=== PATIENT | female | born 1935 | race Caucasian/White ===

== ENCOUNTER 2021-03-16 17:26 | Outpatient (REF) | payer MEDICARE, OTHER, SELFPAY ==
[2021-03-16 16:13] LABS: HCT 46.2 % (36.0-46.0); HGB 15.8 g/dL (11.2-15.7); MCH 30.8 pg (27.0-33.0); MCHC 34.2 % (32.0-36.0); MCV 90.1 fL (80-95); MPV 11.8 fL (8.0-11.0); Platelet Count 218 10^3/uL (130-400); RBC 5.13 10^6/uL (3.93-5.22); RDW 12.3 % (11.7-14.6); RDW-SD 40.3 fL; WBC 7.05 10^3/uL (4.4-10.8)
[2021-03-16 17:02] LABS: ALT 41 U/L (14-59); AST 21 U/L (15-37); Albumin 4.5 g/dL (3.4-5.0); Alkaline Phosphatase 83 U/L (46-116); Anion Gap 12.3 mmol/L (3-11); BUN 13 mg/dL (7-18); Bilirubin, Total 0.8 mg/dL (0.2-1.0); CO2 27.7 mmol/L (21.0-32.0); CREATININE 0.8 mg/dL (0.55-1.02); Calcium 9.4 mg/dL (8.5-10.1); Chloride 98 mmol/L (98-107); Potassium 3.5 mmol/L (3.5-5.1); Sodium 138 mmol/L (136-145); TSH (W/Ref FT4) 2.07 uIU/mL (0.36-3.74); Total Protein 8.3 g/dL (6.4-8.2); Vitamin B12 443 pg/mL (193-986)
[2021-03-16 17:06] LABS: Glucose 318 mg/dL (74-106)
== END 2021-03-16 17:27 | disposition home or self-care (01) ==
LOC: NCHCN 17:26
PROVIDERS: Visit Provider Family Medicine
DX: I10 Essential (primary) hypertension (principal); R01.1 Cardiac murmur, unspecified; R41.3 Other amnesia
CPT/HCPCS: 80053; 85027; 82607; 84443

== ENCOUNTER 2021-04-13 00:17 | Outpatient (CLI) | payer MEDICARE, OTHER, SELFPAY ==
--- NOTE | 2021-04-13 14:04 | DI.US_ITS ---
APPROVED REPORT EXAM: Comprehensive 2D, Doppler, and color-flow Echocardiogram Patient Location: Out-Patient Paperhanger And Painter: Sil Watson RDCS (AE) Indications: Heart murmur Other Information Study Quality: Adequate Conclusion Normal left ventricular wall thickness and chamber size. Estimated ejection fraction is 55 to 60%. Wall motion is normal Normal right ventricular size and systolic function Both atria are normal in size Aortic valve is calcified and probably trileaflet. There is no aortic stenosis. There is trace aort ic regurgitation Mild mitral annular calcification with trace mitral regurgitation Normal tricuspid valve with trace regurgitation Mildly dilated ascending aorta measuring 3.44 cm Wall motion Left Ventricle The left ventricle is normal size. The left ventricular systolic function is normal. The left ventric ular ejection fraction is within the normal range. There is normal left ventricular wall thickness. T here is normal LV segmental wall motion. There is no ventricular septal defect visualized. LVEF is 55 -60%. Right Ventricle The right ventricle is normal size. The right ventricular systolic function is normal. Atria The left atrium size is normal. The right atrium size is normal. The interatrial septum is intact wit h no evidence for an atrial septal defect. Aortic Valve Aortic valve is calcified. Aortic valve is probably trileaflet. There is no aortic valvular stenosis. Trace aortic regurgitation. Mitral Valve Mild mitral annular calcification. No evidence of mitral valve stenosis. Trace mitral regurgitation. Tricuspid Valve The tricuspid valve is normal in structure. There is no tricuspid valve stenosis. Trace tricuspid reg urgitation. Unable to assess PA pressure. Pulmonic Valve The pulmonary valve is normal in structure. There is no pulmonic valvular stenosis. There is no pulmo maik valvular regurgitation. Great Vessels The aortic root is normal in size. The ascending aorta is mildly dilated. Aortic arch is not well vis ualized. IVC is normal in size and collapses >50% with inspiration. Pericardium There is no pericardial effusion. 2D Dimensions IVSD d PLAX 0.88 cm F: 0.6-1.0 LV Vol A2C d MOD 70.8 mL LVPW d PLAX 0.90 cm F: 0.6 - 1.0 LV Vol A4C d MOD 80.7 mL LVID d PLAX 4.17 cm F: 3.8 - 5.2 LA vol/ BSA A2C s A-L 18.6 mL/m2 LVDs 3.00 cm F: 2.2 - 3.5 LA vol/ BSA A4C s A-L 16.1 mL/m2 Ao Root d 2.88 cm F: 2.7 - 3.3 LA Vol/ BSA Biplane s A-L 17.9 mL/m2 RA Area A4C 10.42 cm2 LA Area A4C s MOD 12.07 cm2 RA Vol/ BSA A4C s A-L 12.8 mL/m2 LA Area A2C s MOD 13.45 cm2 Ao Asc Diam d 3.44 cm F: 2.3 - 3.1 LV EF A4C MOD 54.5 % LV EF Teichholz 54.3 % LV EF A2C MOD 55.3 % LVEF (Tong's) 54.04 % F: 54 - 74 LV EF Biplane MOD 54.0 % LV Volume 60.71 mL F: 46 - 106 SV 41.23 mL LV Volume Index 35.92 mL/m2 F: 29 - 61 SV Index 24.38 mL/m2 LV Vol Biplane MOD 76.3 mL FS 27.75 % M-Mode TAPSE 1.90 cm (M/F) >1.7 LV Diastology MV E' medial 0.050 (>0.07 m/s) E/A Ratio 0.6 LV E/e MED 14.05 (<14) MV E Vmax 0.71 (0.4-1.3 m/s) MV E' lateral 0.083 (>0.1 m/s) MV A Vmax 1.20 (0.4-1.3 m/s) LV E/e LAT 8.45 (<14) MV E/A Ratio 0.58 MV E/E' medial 14.08 MV E/E' lateral 8.49 Aortic Valve LVOT Area 3.82 cm2 AoV Area Vmax 2.54 cm2 LVOT Vmax 1.24 m/s AoV Area/ BSA (Vmax) 1.50 cm2/m2 LVOT Mean Sean. 0.80 m/s SACHI Mean Sean. 2.02 cm2 LVOT Peak Grad 6.2 mmHg SACHI Mean Sean. Index 1.19 cm2/m2 LVOT Mean Grad 3.1 mmHg AR DT 1425 msec LVOT VTI 0.213 m AR PHT 413 msec LVOT Diam s 2.20 cm AoV Vmax 1.87 m/s Velocity Ratio 0.66 AoV Mean Sean. 1.52 m/s AoV Peak Grad 14.0 mmHg LVOT SV 81.18 mL AoV Mean Grad 9.6 mmHg AoV VTI 0.384 m AoV Area VTI 2.12 cm2 AoV Area/ BSA (VTI) 1.25 cm/m2 Mitral Valve MV DT 206 (160-240 msec) MV PHT 60 msec MV Area PHT 3.69 cm2 MV VTI 0.251 m MV Area VTI 3.24 (4.0-6.0 cm2) Pulmonary Valve PV Vmax 1.13 (0.5-1.5 m/s) RVOT Peak Gr. 3.54 mmHg PV Peak Grad 5.1 mmHg RVOT Mean Gr. 1.70 mmHg PV Mean Grad 2.7 mmHg RVOT VTI 0.162 m PV VTI 0.188 m RVOT Vmax 0.94 m/s
== END 2021-04-13 00:37 ==
PROVIDERS: Visit Provider Family Medicine
DX: R01.1 Cardiac murmur, unspecified (principal); I77.810 Thoracic aortic ectasia
CPT/HCPCS: 93306

== ENCOUNTER 2021-05-03 13:47 | Outpatient (REF) | payer MEDICARE, OTHER, SELFPAY ==
[2021-05-03 16:30] LABS: C Diff PCR Negative (Negative)
== END 2021-05-03 13:48 | disposition home or self-care (01) ==
LOC: NCHCN 13:47
PROVIDERS: Visit Provider Family Medicine
DX: E11.9 Type 2 diabetes mellitus without complications (principal); I10 Essential (primary) hypertension; K52.9 Noninfective gastroenteritis and colitis, unspecified
CPT/HCPCS: 87329; 87493; 83630; 87177

== ENCOUNTER 2021-11-27 12:25 | Inpatient (IN) | payer MEDICARE, OTHER, SELFPAY ==
[2021-11-27] VITALS (34 sets, daily range): BP systolic 125–209; BP diastolic 68–167; PULSE 79–138; RESP 0–37; O2SAT 91–98
--- NOTE | 2021-11-27 12:30 | RT.EKG_ITS ---
APPROVED REPORT Exam: Resting ECG Reason for Exam: STROKE Patient Location: E HR:119 bpm ECG Measurements Heart Rate 119 AXIS OK 172 P 70 QRSd 87 QRS 44 QT 315 T 239 QTc 444 Conclusion Sinus tachycardia...rate> 99 Probable left atrial enlargement...P >50mS, <-0.10mV V1 Probable LVH with secondary repol abnrm...multiple LVH criteria sinus tachycardia, normal axis, normal interals, lateral st depression, consider related to rate v LV H
--- NOTE | 2021-11-27 12:30 | DI.CT_ITS ---
Exam(s) CT HEAD WO EXAM: CT HEAD WO CLINICAL HISTORY: ams, vomiting. TECHNIQUE: Imaging Protocol: Axial computed tomography images with coronal and sagittal reformatted images were created and reviewed COMPARISON: CT HEAD AND NECK W CONTRAST from 05/23/2012 FINDINGS: Ventricles and Extra axial spaces: Normal in size and morphology for the patient's age. Hemorrhage: None. Cerebral parenchyma: No acute territorial infarct. There are areas of decreased attenuation in the w quan matter consistent with small vessel ischemic disease. Midline shift: None. Brainstem/Cerebellum: Normal. Calvarium: Normal. Visualized Paranasal sinuses/Mastoids: Clear. Soft Tissues: Unremarkable. IMPRESSION: No acute intracranial process. RADIATION DOSE DELIVERED: 1,364.41mGy.cm Total DLP DATA REPOSITORY: All CT scans at this facility are submitted to the National Radiology Data Registry (NRDR) Dose Index Registry (DIR) with the [employer] (ACR). RADIATION OPTIMIZATION: All CT scans at this facility use at least one of these dose optimization te chniques: automated exposure control; mA and/or kV adjustment per patient size (includes targeted exa ms where dose is matched to clinical indication); or iterative reconstruction.
--- NOTE | 2021-11-27 12:30 | DI.RAD_ITS ---
Exam(s) XR CHEST 1V IN DI DEPT EXAM: XR CHEST 1V IN DI DEPT CLINICAL HISTORY: ams, vomiting TECHNIQUE: 2D digital imaging was performed of the chest. One image was obtained. An AP view was ob tained. COMPARISON: CR LEFT RIBS TO INCLUDE CXR from 12/07/2016 FINDINGS: There are low lung volumes. MEDIASTINUM: Normal. HEART: Normal. PULMONARY VASCULATURE: Normal. LUNGS: Clear. PLEURAL SPACE: No pleural effusion or pneumothorax. BONE:Within normal limits for the patient's age. OTHER FINDINGS:Normal. IMPRESSION: No acute pulmonary findings. DATA REPOSITORY: RADIATION DOSE DELIVERED:
[2021-11-27] MEDS: Ondansetron 4 MG/2 ML VIAL IVP (12:44)
[2021-11-27] MEDS: LORazepam 2 MG/ML VIAL (12:45)
--- NOTE | 2021-11-27 12:45 | DI.CT_ITS ---
Exam(s) CT ABDOMEN PELVIS W EXAM: CT ABDOMEN PELVIS W CLINICAL HISTORY: abd pain, vomiting TECHNIQUE: Imaging Protocol: Axial computed tomography images with coronal and sagittal reformatted images were created and reviewed CONTRAST MATERIAL: Intravenous: Omnipaque 350 Contrast volume:100 mL Oral: No COMPARISON: CT ABD PELVIS WITH CONTRAST from 10/20/2015 FINDINGS: The examination is limited due to patient motion artifact. ABDOMEN: Lung Bases: There is a portion of a right breast implant present. There is a small hiatal hernia. T here is a 1 cm left lower lobe pulmonary nodule. This measured 0.9 cm on the prior examination from 10/20/2015. Liver: Fatty infiltration of the liver. There is a stable hepatic cyst. No suspicious hepatic los s are seen. Portal, Superior Mesenteric, and Splenic Veins: Unremarkable. Gallbladder and Biliary Tract: Status post cholecystectomy. No significant biliary ductal dilatation . Pancreas: Normal density, no abnormal calcifications or inflammatory process. Spleen: Normal. Adrenals: No masses seen. Kidneys: Normal size, contour and axis. No radiodense stones or obstructive uropathy. Stable bilatera l renal cysts. Abdominal Aorta: Abdominal portion non-dilated. Atherosclerosis. Bowel: No obstruction or bowel wall thickening. No evidence of appendicitis. There is diffuse coloni c diverticulosis, but no evidence of acute diverticulitis. Peritoneal Cavity: No ascites, collection or mesenteric inflammatory response. No free air. Lymph Nodes: Within normal limits. Bones: Within normal limits for the patient's age. Soft Tissues: Unremarkable. PELVIS: Bladder: Symmetric distention, no gross wall thickening. Reproductive Organs: Calcifications are seen in the uterus most consistent with calcified uterine fib roids. Lymph Nodes: Within normal limits. Bones: Within normal limits for the patient's age. IMPRESSION: 1. Examination limited by patient motion artifact. 2. No evidence of a bowel obstruction. 3. No acute abdominal or pelvic process. 4. Slight interval increase in size of the left lower lobe pulmonary nodule. It currently measures 1 cm compared with 9 mm on the prior examination. This is nonspecific but neoplasm cannot be excluded . Follow-up as clinically appropriate. RADIATION DOSE DELIVERED: 873.64mGy.cm Total DLP DATA REPOSITORY: All CT scans at this facility are submitted to the National Radiology Data Registry (NRDR) Dose Index Registry (DIR) with the [employer] (ACR). RADIATION OPTIMIZATION: All CT scans at this facility use at least one of these dose optimization te chniques: automated exposure control; mA and/or kV adjustment per patient size (includes targeted exa ms where dose is matched to clinical indication); or iterative reconstruction.
--- NOTE | 2021-11-27 12:54 | ED.GENADUL_ITS ---
Discharge Plan Disposition Patient Disposition: [facility] INPATIENT Condition: Improving Discharge Details Chief Complaint: AMS/LOC Clinical Impression: Acute hyperglycemia, Altered mental status, Dehydration Primary Care Provider: Jane Morales ED Provider: Mason Washington Home Meds and New Rx's Prescriptions: No Action enalapril maleate 20 MG tablet 40 mg PO DAILY hydrochlorothiazide 25 MG tablet 25 mg PO prednisone 20 MG tablet 40 mg PO QAM Qty: 5 0RF diphenhydramine HCl [Antihistamine] 25 MG tablet 25 mg PO Q6H PRN PRNQty: 30 0RF Rx Instructions: as needed for swelling of mouth or lips ondansetron 4 MG tablet,disintegrating 4 mg PO QID PRN PRN (Reason: Nausea) Qty: 6 0RF ciprofloxacin HCl 250 MG tablet 250 mg PO BID Qty: 10 0RF Medical Decision Making 86-year-old female history of hypertension diabetes noncompliant with medications brought in by family for evaluation of altered mental status, acute onset decreased responsiveness while in the shower this afternoon, no trauma, possible seizure activity in the field, confusion decreased responsiveness improving in route, did have episode of emesis per EMS, hypotensive tachycardic and hyperglycemic on arrival; 1 week of abdominal pain per family. Must consider metabolic derangement such as hyperglycemic nonketotic syndrome versus dehydration versus intracranial hemorrhage versus infectious etiology such as UTI or intra-abdominal infection. IV access has been obtained patient was given 0.5 mg Ativan for agitation to assist with imaging and further evaluation. CT head CT abdomen pelvis, UA we will start fluids and Zofran, pending further results likely admission 16: 47 clinical picture consistent with hyperosmolar nonketotic syndrome versus DKA, however given rapid correction improvement in clinical status with hydration as well as clearance of anion gap with fluids and 1 dose of IV insulin more likely hyperosmolar state with component of dehydration. Vital signs greatly improved. Patient currently resting comfortably. Have discussed goals of care with family, at this time patient is full code. Patient be admitted for further hydration insulin sliding scale continued reassessment of mental status and further care. HPI General Date/Time Provider Initiated Documentation: 11/27/21 12:34 . HPI Narrative: 86-year-old female history of diabetes hypertension, brought in by EMS for altered mental status, was assisting her to the shower today when she became unresponsive, he sat her down, unresponsive until EMS arrived at which point she began to vomit, was suctioned by EMS. Noted to be hyperglycemic and hypertensive in the field. Became more responsive in route. Per family she has not been taking her medications. Has also been endorsing abdominal discomfort over the past week Related Data Home Medications Medication Instructions Recorded Confirmed diphenhydramine HCl 25 mg tablet 25 mg PO Q6H PRN PRN ##30 05/23/12 10/20/15 (Antihistamine) enalapril maleate 20 mg tablet 40 mg PO DAILY 05/23/12 10/20/15 hydrochlorothiazide 25 mg tablet 25 mg PO 05/23/12 05/23/12 prednisone 20 mg tablet 40 mg PO QAM #5 tabs 05/23/12 10/20/15 ciprofloxacin HCl 250 mg tablet 250 mg PO BID #10 tabs 10/20/15 ondansetron 4 mg disintegrating 4 mg PO QID PRN PRN Nausea ##6 10/20/15 tablet Previous Rx's Medication Instructions Recorded diphenhydramine HCl 25 mg tablet 25 mg PO Q6H PRN PRN ##30 05/23/12 (Antihistamine) prednisone 20 mg tablet 40 mg PO QAM #5 tabs 05/23/12 ciprofloxacin HCl 250 mg tablet 250 mg PO BID #10 tabs 10/20/15 ondansetron 4 mg disintegrating 4 mg PO QID PRN PRN Nausea ##6 10/20/15 tablet Allergies Allergy/AdvReac Type Severity Reaction Status Date / Time No Known Allergies Allergy Unverified 10/20/15 14:44 General Stated Complaint: AMS/LOC ALFONZO: 2 Review of Systems Narrative: Review of Systems Constitutional: negative Eyes: negative ENT: negative Cardiovascular: negative Respiratory: negative Gastrointestinal: Vomiting : negative Musculoskeletal: negative Skin: negative Neurologic: altered mental status Psych: negative PFSH All Active Problems (Updated 11/27/21 @ 16:50 by Mason Washington MD) Acute hyperglycemia (Acute) Altered mental status (Acute) Dehydration (Acute) Medical History (Updated 11/27/21 @ 16:50 by Mason Washington MD) Breast cancer Hypertension Pulmonary nodules Surgical History (Updated 11/27/21 @ 16:49 by Cinthya Tejada MD) S/P cholecystectomy S/P mastectomy S/P tonsillectomy S/P tubal ligation Social History Smoking/Tobacco Use Status: Former Tobacco Use Smoking risk assessment performed?: Yes Alcohol Intake: never Drug use: Never Additional Social history: unable to ask d/t mental status Exam Narrative Exam Narrative: Physical Examination General: Awake, agitated HEENT: normocephalic, atraumatic; PERRL, EOM intact, conjunctiva normal; no nasal discharge; dry oral mucosa Neck: supple, trachea midline; full ROM Chest: normal to inspection Respiratory: normal respiratory effort, speaking in full sentences, clear to auscultation, no wheezing, rales or rhonchi Cardiac: Tachycardia, regular rhythm, S1S2 intact, no murmurs rubs or gallops GI: abdomen soft, non-tender, non-distended; no palpable mass or hepatosplenomegaly Skin: no lesions, rashes or trauma appreciated Neuro: No verbal response,moaning, moving all extremities with full strength, cranial nerves intact Extremities: No peripheral edema, no signs of trauma Psych: Agitation, confusion Course Vital Signs Vital signs: Vital Signs Pulse 130 H 11/27/21 12:30 Respiratory Rate 20 11/27/21 12:30 Pulse Oximetry 93 11/27/21 12:30 Temperature Source Temporal Artery Scan 11/27/21 12:30 Pulse 130 H 11/27/21 12:30 Respiratory Rate 20 11/27/21 12:30 Blood Pressure Position Supine 11/27/21 12:30 Pulse Oximetry 93 11/27/21 12:30 Oxygen Delivery Method Room Air 11/27/21 12:30 Oxygen Flow Rate 0 11/27/21 12:30 Pain Level 0 11/27/21 12:30
[2021-11-27 13:00] LABS: Abs Immature Grans 0.09 10^3/uL (0.0-0.06); Absolute Basophil Count 0.12 10^3/uL (0.0-0.2); Absolute Eosinophil Count 0.08 10^3/uL (0.0-0.7); Absolute Lymphocyte Count 2.52 10^3/uL (1.2-3.4); Absolute Monocyte Count 0.79 10^3/uL (0.1-0.8); Basophils % 1.3; Eosinophils % 0.9; HGB 15.5 g/dL (11.2-15.7); Lymphocytes % 27.4; MCH 30.7 pg (27.0-33.0); MCHC 34.4 % (32.0-36.0); MCV 89 fL (80-95); Monocytes % 8.6; Neutrophils % 60.8; Platelet Count 224 10^3/uL (130-400); RBC 5.05 10^6/uL (3.93-5.22); RDW-SD 39.3 fL
[2021-11-27] MEDS: Omnipaque 350 MG/ML 100 ML BTL IJ (13:08)
--- NOTE | 2021-11-27 13:12 | DI.VRAD_ITS ---
PROCEDURE INFORMATION: Exam: CT Head Without Contrast Exam date and time: 11/27/2021 12:50 PM Age: 86 years old Clinical indication: Stroke-like symptoms; Altered mental status/memory loss and vomiting TECHNIQUE: Imaging protocol: Computed tomography of the head without contrast. Other technique: STROKE PROTOCOL was implemented. COMPARISON: No relevant prior studies available. FINDINGS: Brain: Brain shows involutional changes with sulcal enlargement. No intra-axial or extra-axial hemorrhage or mass. No acute infarct visible at this time. No significant white matter abnormality Cerebral ventricles: Normal. No ventriculomegaly or midline shift. Pituitary gland and sella: Normal. No enlargement. Paranasal sinuses: Visualized sinuses are unremarkable. No fluid levels or mucosal thickening. Mastoid air cells: Visualized mastoid air cells are well aerated. Bones/joints: Unremarkable. No acute fracture. Soft tissues: Unremarkable. Vasculature: Moderate calcification of the cavernous carotid arteries. . IMPRESSION: Involutional changes. No acute abnormality. ASSESSMENT: ASPECTS ([place] Stroke Program Early CT Score) is 10. Dictated and Authenticated by: Rj Sanchez MD. Ordering:MAITE Cuevas MD
[2021-11-27 13:19] LABS: Prothrombin Time 10.3 sec (9.3-11.0)
[2021-11-27 13:21] LABS: BE (Venous) 0 mmol/L (-2-3); HCO3 (Venous) 26 mmol/L (23-28); O2 Sat (Venous) 85 %; TCO2 (Venous) 23 mmol/L (24-29); pCO2 (Venous) 52 mmHg (41-51); pO2 (Venous) 53 mmHg
[2021-11-27] MEDS: Normal Saline 1,000 ML 1000 ML IV (13:23)
[2021-11-27 13:25] LABS: ALT 42 U/L (14-59); AST 25 U/L (15-37); Albumin 4.2 g/dL (3.4-5.0); Alkaline Phosphatase 82 U/L (46-116); Anion Gap 19.3 mmol/L (3-11); BUN 14 mg/dL (7-18); Bilirubin, Total 0.7 mg/dL (0.2-1.0); CO2 24.7 mmol/L (21.0-32.0); CREATININE 1.2 mg/dL (0.55-1.02); Calcium 9.9 mg/dL (8.5-10.1); Chloride 94 mmol/L (98-107); Creatine Kinase 24 U/L (26-192); Estimated GFR 44.64 (mL/min/1.73m2); Lipase 202 U/L (73-393); Potassium 3.2 mmol/L (3.5-5.1); Sodium 138 mmol/L (136-145); TSH (W/Ref FT4) 5.22 uIU/mL (0.36-3.74); Total Protein 8.5 g/dL (6.4-8.2); Troponin I < 50 ng/L (<or=60)
--- NOTE | 2021-11-27 13:27 | DI.VRAD_ITS ---
PROCEDURE INFORMATION: Exam: CT Abdomen And Pelvis With Contrast Exam date and time: 11/27/2021 1:02 PM Age: 86 years old Clinical indication: Vomiting TECHNIQUE: Imaging protocol: Computed tomography of the abdomen and pelvis with contrast. COMPARISON: CT ABD PELVIS WITH CONTRAST 10/20/2015 4:15 PM FINDINGS: Lungs: Dependent atelectasis is seen at the lung bases. There is a nodule in the left lower lobe measuring approximately 11 mm in diameter on series 5, image 141. This was present on the patient's prior examination but appears larger. Pleural spaces: A large pleural effusion is not visualized. Diaphragm: Elevation of the right hemidiaphragm. Liver: Low-density lesion noted in the medial segment left lobe of the liver also seen on the patient's prior examination from 2015. No new or suspicious intrahepatic abnormality is identified. Gallbladder and bile ducts: Prior cholecystectomy. Prominence of the extrahepatic common bile duct but no CT evidence of choledocholithiasis. Pancreas: No discrete pancreatic mass. No pancreatic ductal dilatation. Spleen: Spleen is unremarkable Adrenal glands: No discrete adrenal mass. Mild adrenal thickening, nodularity also previously noted. Kidneys and ureters: Small bilateral renal cortical cysts. Largest is seen at the upper pole of the left kidney. No solid renal cortical mass. No radiopaque calculi. No hydronephrosis. Stomach and bowel: Evaluation of the bowel is limited in the absence of oral contrast. There is however no evidence of bowel obstruction. There is no discrete mass or pneumatosis. There are scattered diverticuli throughout the colon but no findings to suggest acute diverticulitis. Appendix: No findings to suggest acute appendicitis Intraperitoneal space: No free fluid focal collections or free intraperitoneal air. Vasculature: Vascular calcification is noted within the abdominal aorta which is nonaneurysmal. Lymph nodes: No significant adenopathy Urinary bladder: Bladder is unremarkable Reproductive: Uterine calcifications are noted likely related to myomatous change. No new adnexal abnormality Bones/joints: Mild anterolisthesis of L4 with respect L5. Findings consistent with lumbar spondylosis, degenerative disc disease. There is vertebral hemangioma noted at T12. There is a prominent Schmorl's node involving the superior endplate of L1. No acute bony abnormality is identified. Soft tissues: Right breast implant noted. Other findings: Examination is degraded by patient motion. IMPRESSION: Exam degraded by patient motion 1. No evidence of bowel obstruction. 2. Diverticulosis without evidence of acute diverticulitis. 3. No free fluid focal collections or free intraperitoneal air. 4. No new focal intrahepatic abnormality identified. Mild fatty infiltration of the liver 5. 11 mm nodule left lower lobe increased in size when compared with the patient's prior examination from 2016. It is nonspecific but suspicious for neoplasm. Dictated and Authenticated by: Bia Saravia MD. Ordering:PMYNOR Cuevas MD
--- NOTE | 2021-11-27 13:29 | DI.VRAD_ITS ---
PROCEDURE INFORMATION: Exam: XR Chest Exam date and time: 11/27/2021 12:51 PM Age: 86 years old Clinical indication: Other: AMS, vomitting TECHNIQUE: Imaging protocol: Radiologic exam of the chest. Views: 1 view. COMPARISON: CR LEFT RIBS TO INCLUDE CXR 12/07/2016 3:03 PM FINDINGS: Lungs: Nodule left lower lobe seen on CT is not visualized on AP chest. No definite new airspace consolidation or overt CHF Pleural spaces: A large pleural effusion, or pneumothorax is not seen Heart/Mediastinum: Heart, mediastinum are not significantly changed Vasculature: Vascular calcification is seen at the aortic arch Bones/joints: No acute bony abnormality. Bony structures are osteopenic. Degenerative changes are seen in the spine. Intraperitoneal space: Surgical clips are seen in the right upper quadrant IMPRESSION: No new airspace consolidation or CHF. Dictated and Authenticated by: Bia Saravia MD. Ordering:MAITE Cuevas MD
[2021-11-27 13:31] LABS: Glucose 616 mg/dL (74-106)
[2021-11-27 13:47] LABS: FREE T4 1.03 ng/dL (0.76-1.46)
[2021-11-27] MEDS: Insulin REGULAR-Human 100 UNITS/ML UNIT 8 UNITS IV (14:04)
[2021-11-27] MEDS: Lactated Ringers 1,000 ML 1000 ML IV (14:05)
[2021-11-27 15:16] LABS: Bilirubin Negative (Negative); Blood Negative (Negative); Clarity Sl Cloudy (Clear); Glucose 500 mg/dL (Negative); Ketones Trace mg/dL (Negative); Leukocyte Esterase Negative (Negative); Nitrite Negative (Negative); Urobilinogen 0.2 EU/dL (Up TO 0.2)
[2021-11-27 15:25] LABS: Bacteria Packed HPF (Negative); C & S Indicated? Yes; Crystals Negative HPF (Negative); Epithelial Cells Negative HPF (Negative); Mucus Negative (Negative); RBC 0-2 HPF (0-2)
[2021-11-27 15:31] LABS: *AMPHETAMINES SCREEN URINE Negative (Negative); *BARBITURATES SCREEN URINE Negative (Negative); *BENZODIAZEPINES SCREEN URINE Negative (Negative); Cannabinoids THC Negative (Negative); Cocaine Screen,Urine Negative (Negative); METHADONE URINE SCREEN Negative (Negative); OPIATES URINE SCREEN Negative (Negative)
[2021-11-27 15:32] LABS: Tricyclic Antidepressants Negative (Negative)
[2021-11-27 15:53] LABS: COVID-19 PCR Negative (Negative); Influenza A PCR Negative (Negative); Influenza B PCR Negative (Negative); RSV PCR Negative (Negative)
[2021-11-27 16:06] LABS: BE (Venous) 8 mmol/L (-2-3); HCO3 (Venous) 34 mmol/L (23-28); O2 Sat (Venous) 47 %; TCO2 (Venous) 31 mmol/L (24-29); pH (Venous) 7.32 (7.31-7.41); pO2 (Venous) 27 mmHg
[2021-11-27 16:07] LABS: pCO2 (Venous) 66 mmHg (41-51)
[2021-11-27] MEDS: ACETAMINOPHEN 1,000 MG/100 ML BTL 400 MG IVPB (16:14)
[2021-11-27 16:19] LABS: Anion Gap 8.5 mmol/L (3-11); BUN 14 mg/dL (7-18); CO2 34.5 mmol/L (21.0-32.0); CREATININE 0.9 mg/dL (0.55-1.02); Calcium 9.4 mg/dL (8.5-10.1); Chloride 99 mmol/L (98-107); Estimated GFR 63.04 (mL/min/1.73m2); Glucose 376 mg/dL (74-106); Potassium 3.4 mmol/L (3.5-5.1); Sodium 142 mmol/L (136-145)
[2021-11-27 16:33] LABS: Troponin I < 50 ng/L (<or=60)
--- NOTE | 2021-11-27 16:47 | HPE_ITS ---
Date of service: 11/27/21 Time of Service: 16:47 Assessment and Plan Assessment and plan (1) Acute hyperglycemia: Status: Acute Assessment and plan: I do not think the patient presented in DKA - it resolved too quickly. Her VBG is more consistent with respiratory acidosis. I think her hyperglycemia represents HHNK. Her Anion gap has corrected. We will initiate her on basal bolus insulin and monitor her BGs. (2) Episode of unresponsiveness: Status: Acute Assessment and plan: MOnitor on tele. Obtain echo. Monitor for seizures. (3) Nausea and vomiting: Status: Acute Assessment and plan: Suspect this is due to above. No acute intraabdominal process was seen on CT. Will also provide a PPI and antiemeitc while hydrating and treating hyperglycemia. (4) Altered mental status: Status: Resolved Assessment and plan: In setting of HHNK, possible unresponsive event. Will obtain an echo and monitor on tele. Troponins negative. Will trial prn ativan for mental status. It is unknown if the patient is a drinker, but tremors do not appear to be EtOH withdrawal tremors. (5) Dehydration: Status: Acute Assessment and plan: IVF (6) Hypertension: Assessment and plan: Continue home therapy (7) DVT prophylaxis: Status: Acute Assessment and plan: lovenox (8) Discharge planning issues: Status: Acute Assessment and plan: Full code History of Present Illness History of Present Illness Chief Complaint: unresponsive episode in the shower Narrative: Ms Melissa is an 86 year old female with PMHx of NIDDM2, HTN, brast cancer s/p mastectomy, who was brought to [facility] ED today after an unresponsive episode in the shower. EMS felt that the patient may have had a seizure, but there is no evidence of tongue biting, and no clear description of the seizure was provided. The patient had been noncompliant with her medications for a couple of weeks, per nursing who obtained the history from her daughter, and has been confused for the last two days. Her was giving her a shower today when she became unresponsive, but came to it quickly and vomited. Her glucose on arrival to ER was 616. Her VBG was more c/w respiratory acidosis than with metabolic. She did have an anion gap as well on presentation and evidence of ketones, but the AG resolved too quickly for it to have been DKA. Per nursing, the patient has been alternating from sleeping to tremulous/agitated since arrival to the ER. It is not known if she is a drinker. No tonic clonic activity has been observed. The patient, when she wakes up, does state that tremors are normal for her. She promptly falls back asleep and cannot provide her history. Review of Systems All systems reviewed & are unremarkable except as noted in HPI and below PFSH All Active Problems (Updated 11/27/21 @ 17:00 by Cinthya Tejada MD) Nausea and vomiting (Acute) Discharge planning issues (Acute) DVT prophylaxis (Acute) Episode of unresponsiveness (Acute) DKA (diabetic ketoacidosis) (Acute) Acute hyperglycemia (Acute) Dehydration (Acute) Medical History (Updated 11/27/21 @ 17:00 by Cinthya Tejada MD) Breast cancer Hypertension Pulmonary nodules Surgical History (Updated 11/27/21 @ 16:49 by Cinthya Tejada MD) S/P cholecystectomy S/P mastectomy S/P tonsillectomy S/P tubal ligation Family History (Updated 11/27/21 @ 21:11 by Cinthya Tejada MD) Other Family history unobtainable due to patient's condition Social History Smoking/Tobacco Use Status: Former Tobacco Use Smoking risk assessment performed?: Yes Alcohol Intake: never Drug use: Never Additional Social history: unable to ask d/t mental status Meds Allergies and Home Medications Allergies Allergy/AdvReac Type Severity Reaction Status Date / Time enalapril Allergy Severe Other (See Unverified 11/27/21 17:04 Comment) morphine Allergy Mild Other (See Unverified 11/27/21 17:04 Comment) Home Medications Medication Instructions Recorded Confirmed Type amlodipine 10 mg tablet 10 mg PO DAILY 11/27/21 11/27/21 History metformin 500 mg tablet 500 mg PO BID 11/27/21 11/27/21 History Exam Narrative Exam Narrative: General: Elderly female who is tremulous, falls asleep after brief periods of agitation, A&Ox1 Neurological: A&ox1, moving all 4 extremities, tremulous, no obvious focal deficits Psychiatric: Agitated when awake; mental status precludes a full evaluation Skin: dry/intact; no lesions on B feet HEENT: Atraumatic, normocephalic, EOMI, dry MM, not permitting exam of the oropharynx, no submandibular or cervical lypmhadenopathy, no goiter or JVD Cardiovascular: RRR Lungs: Diminished breath sounds B Gastrointestinal: soft, nontender, nondistended Genitourinary: has a warren Extremities: no edema BLEs, +1 pedal pulses B, no c/c. Results Imaging Additional studies: CT head w/o contrast: involutional changes.? No acute abnormality. CT abdomen/pelvis w/ contrast: Exam degraded by patient motion 1. No evidence of bowel obstruction. 2. Diverticulosis without evidence of acute diverticulitis. 3. No free fluid focal collections or free intraperitoneal air. 4. No new focal intrahepatic abnormality identified. Mild fatty infiltration of the liver 5. 11 mm nodule left lower lobe increased in size when compared with the patient's prior examination from 2016. It is nonspecific but suspicious for neoplasm. CXR: No new airspace consolidation or CHF. EKG: ST, HR 119, LVH, lateral ST depressions Labs Result diagrams: 11/27/21 12:35 11/27/21 20:10 Labs: Laboratory Results - last 24 hr 11/27/21 11/27/21 11/27/21 12:35 12:35 12:35 WBC 9.20 RBC 5.05 Hgb 15.5 Hct 45.0 MCV 89 MCH 30.7 MCHC 34.4 RDW 12.0 Plt Count 224 MPV 11.0 Immature Gran % 1.0 Neutrophils % 60.8 Lymphocytes % 27.4 Monocytes % 8.6 Eosinophils % 0.9 Basophils % 1.3 Nucleated RBC % 0.0 Absolute Neutrophils 5.60 Absolute Lymphocytes 2.52 Absolute Monocytes 0.79 Absolute Eosinophils 0.08 Absolute Basophils 0.12 PT 10.3 INR 1.0 APTT 21.0 VBG pH VBG pCO2 VBG pO2 VBG HCO3 VBG Total CO2 VBG O2 Saturation VBG Base Excess Sodium 138 Potassium 3.2 L Chloride 94 L Carbon Dioxide 24.7 Anion Gap 19.3 H BUN 14 Creatinine 1.2 H Est GFR (CKD-EPI 2020) 44.64 Glucose 616 H* Calcium 9.9 Total Bilirubin 0.7 AST 25 ALT 42 Alkaline Phosphatase 82 Creatine Kinase 24 L Troponin I < 50 Total Protein 8.5 H Albumin 4.2 Lipase 202 TSH 5.22 H Free T4 1.03 Urine Color Urine Clarity Urine pH Ur Specific [place] Urine Protein Urine Ketones Urine Blood Urine Nitrite Urine Bilirubin Urine Urobilinogen Ur Leukocyte Esterase Urine RBC Urine WBC Ur Epithelial Cells Urine Crystals Urine Bacteria Urine Mucus Ur Culture Indicated? Urine Glucose Urine Opiates Screen Urine Methadone Screen Ur Barbiturates Screen Ur Tricyclics Screen Ur Amphetamines Screen U Benzodiazepines Scrn Urine Cocaine Screen Ur THC Screen COVID-19 Source SARS-CoV-2 (PCR) Influenza Type A (PCR) Influenza Type B (PCR) RSV (PCR) 11/27/21 11/27/21 11/27/21 13:17 15:00 15:00 WBC RBC Hgb Hct MCV MCH MCHC RDW Plt Count MPV Immature Gran % Neutrophils % Lymphocytes % Monocytes % Eosinophils % Basophils % Nucleated RBC % Absolute Neutrophils Absolute Lymphocytes Absolute Monocytes Absolute Eosinophils Absolute Basophils PT INR APTT VBG pH 7.30 L VBG pCO2 52 H VBG pO2 53 VBG HCO3 26 VBG Total CO2 23 L VBG O2 Saturation 85 VBG Base Excess 0 Sodium Potassium Chloride Carbon Dioxide Anion Gap BUN Creatinine Est GFR (CKD-EPI 2020) Glucose Calcium Total Bilirubin AST ALT Alkaline Phosphatase Creatine Kinase Troponin I Total Protein Albumin Lipase TSH Free T4 Urine Color Yellow Urine Clarity Sl Cloudy Urine pH 6.0 Ur Specific [place] 1.020 Urine Protein 100 H Urine Ketones Trace H Urine Blood Negative Urine Nitrite Negative Urine Bilirubin Negative Urine Urobilinogen 0.2 Ur Leukocyte Esterase Negative Urine RBC 0-2 Urine WBC 10-20 H Ur Epithelial Cells Negative Urine Crystals Negative Urine Bacteria Packed Urine Mucus Negative Ur Culture Indicated? Yes Urine Glucose 500 H Urine Opiates Screen Negative Urine Methadone Screen Negative Ur Barbiturates Screen Negative Ur Tricyclics Screen Negative Ur Amphetamines Screen Negative U Benzodiazepines Scrn Negative Urine Cocaine Screen Negative Ur THC Screen Negative COVID-19 Source SARS-CoV-2 (PCR) Influenza Type A (PCR) Influenza Type B (PCR) RSV (PCR) 11/27/21 11/27/21 11/27/21 15:00 15:58 15:58 WBC RBC Hgb Hct MCV MCH MCHC RDW Plt Count MPV Immature Gran % Neutrophils % Lymphocytes % Monocytes % Eosinophils % Basophils % Nucleated RBC % Absolute Neutrophils Absolute Lymphocytes Absolute Monocytes Absolute Eosinophils Absolute Basophils PT INR APTT VBG pH VBG pCO2 VBG pO2 VBG HCO3 VBG Total CO2 VBG O2 Saturation VBG Base Excess Sodium 142 Potassium 3.4 L Chloride 99 Carbon Dioxide 34.5 H Anion Gap 8.5 BUN 14 Creatinine 0.9 Est GFR (CKD-EPI 2020) 63.04 Glucose 376 H Calcium 9.4 Total Bilirubin AST ALT Alkaline Phosphatase Creatine Kinase Troponin I < 50 Total Protein Albumin Lipase TSH Free T4 Urine Color Urine Clarity Urine pH Ur Specific [place] Urine Protein Urine Ketones Urine Blood Urine Nitrite Urine Bilirubin Urine Urobilinogen Ur Leukocyte Esterase Urine RBC Urine WBC Ur Epithelial Cells Urine Crystals Urine Bacteria Urine Mucus Ur Culture Indicated? Urine Glucose Urine Opiates Screen Urine Methadone Screen Ur Barbiturates Screen Ur Tricyclics Screen Ur Amphetamines Screen U Benzodiazepines Scrn Urine Cocaine Screen Ur THC Screen COVID-19 Source Not Applicable SARS-CoV-2 (PCR) Negative Influenza Type A (PCR) Negative Influenza Type B (PCR) Negative RSV (PCR) Negative 11/27/21 15:58 WBC RBC Hgb Hct MCV MCH MCHC RDW Plt Count MPV Immature Gran % Neutrophils % Lymphocytes % Monocytes % Eosinophils % Basophils % Nucleated RBC % Absolute Neutrophils Absolute Lymphocytes Absolute Monocytes Absolute Eosinophils Absolute Basophils PT INR APTT VBG pH 7.32 VBG pCO2 66 H* VBG pO2 27 VBG HCO3 34 H VBG Total CO2 31 H VBG O2 Saturation 47 VBG Base Excess 8 H Sodium Potassium Chloride Carbon Dioxide Anion Gap BUN Creatinine Est GFR (CKD-EPI 2020) Glucose Calcium Total Bilirubin AST ALT Alkaline Phosphatase Creatine Kinase Troponin I Total Protein Albumin Lipase TSH Free T4 Urine Color Urine Clarity Urine pH Ur Specific [place] Urine Protein Urine Ketones Urine Blood Urine Nitrite Urine Bilirubin Urine Urobilinogen Ur Leukocyte Esterase Urine RBC Urine WBC Ur Epithelial Cells Urine Crystals Urine Bacteria Urine Mucus Ur Culture Indicated? Urine Glucose Urine Opiates Screen Urine Methadone Screen Ur Barbiturates Screen Ur Tricyclics Screen Ur Amphetamines Screen U Benzodiazepines Scrn Urine Cocaine Screen Ur THC Screen COVID-19 Source SARS-CoV-2 (PCR) Influenza Type A (PCR) Influenza Type B (PCR) RSV (PCR) Last Vital Signs Pulse 79 11/27/21 15:31 Resp 18 11/27/21 15:31 BP 151/70 H 11/27/21 15:31 Pulse Ox 97 11/27/21 15:31
[2021-11-27 16:59] LABS: Lab Add On Test DONE
[2021-11-27 17:18] LABS: Magnesium 1.6 mg/dL (1.8-2.4)
[2021-11-27 18:05] LABS: BE (Venous) 9 mmol/L (-2-3); HCO3 (Venous) 34 mmol/L (23-28); O2 Sat (Venous) 51 %; TCO2 (Venous) 31 mmol/L (24-29); pCO2 (Venous) 60 mmHg (41-51); pH (Venous) 7.36 (7.31-7.41); pO2 (Venous) 27 mmHg
[2021-11-27 19:30] LABS: Source Nasal/Nares
[2021-11-27 20:00] LABS: COVID-19 PCR Negative (Negative)
[2021-11-27 20:27] LABS: Anion Gap 7.5 mmol/L (3-11); BUN 15 mg/dL (7-18); CO2 34.5 mmol/L (21.0-32.0); Calcium 9.6 mg/dL (8.5-10.1); Chloride 98 mmol/L (98-107); Estimated GFR 55.55 (mL/min/1.73m2); Glucose 432 mg/dL (74-106); Potassium 4.1 mmol/L (3.5-5.1); Sodium 140 mmol/L (136-145)
[2021-11-27] MEDS: LORazepam 2 MG/ML VIAL 0.5 MG IVP (22:08)
[2021-11-28] VITALS (14 sets, daily range): BP systolic 135–194; BP diastolic 47–108; PULSE 77–92; RESP 16–22; TEMP 36.5–37.3; O2SAT 86–96
[2021-11-28] MEDS: Insulin Aspart 300 UNITS/3 ML PEN SC ×4 (00:34→21:56)
[2021-11-28] MEDS: POTASSIUM CHLORIDE/0.45% NACL 1,000 ML 100 MEQ IV (00:35)
[2021-11-28] MEDS: LORazepam 2 MG/ML VIAL 0.5 MG IVP ×2 (00:35→06:56)
[2021-11-28] MEDS: MAGNESIUM SULFATE 2 GM/50 ML BAG IVPB (00:36)
[2021-11-28] MEDS: Insulin Glargine 300 UNITS/3 ML PEN 10 UNITS SC (00:49)
[2021-11-28 05:20] LABS: Lactate 1.5 mmol/L (0.6-1.4)
[2021-11-28 05:22] LABS: Abs Immature Grans 0.02 10^3/uL (0.0-0.06); Absolute Basophil Count 0.08 10^3/uL (0.0-0.2); Absolute Eosinophil Count 0.08 10^3/uL (0.0-0.7); Absolute Lymphocyte Count 2.11 10^3/uL (1.2-3.4); Absolute Monocyte Count 1.18 10^3/uL (0.1-0.8); Absolute Neutrophil Count 6.33 10^3/uL (1.2-6.7); Basophils % 0.8; Eosinophils % 0.8; HCT 38.4 % (36.0-46.0); HGB 13.4 g/dL (11.2-15.7); Immature Grans % 0.2; Lymphocytes % 21.5; MCH 31.3 pg (27.0-33.0); MCHC 34.9 % (32.0-36.0); MCV 90 fL (80-95); Neutrophils % 64.7; Platelet Count 178 10^3/uL (130-400); RBC 4.28 10^6/uL (3.93-5.22); RDW 12.2 % (11.7-14.6); RDW-SD 39.8 fL
[2021-11-28 05:36] LABS: Anion Gap 8.3 mmol/L (3-11); BUN 15 mg/dL (7-18); CO2 34.7 mmol/L (21.0-32.0); CREATININE 0.8 mg/dL (0.55-1.02); Calcium 9.5 mg/dL (8.5-10.1); Chloride 101 mmol/L (98-107); Estimated GFR 72.61 (mL/min/1.73m2); Glucose 262 mg/dL (74-106); Hemoglobin A1C 11.7 % (<5.7); Magnesium 2.7 mg/dL (1.8-2.4); PHOSPHORUS 3.5 mg/dL (2.6-4.7); Potassium 3.2 mmol/L (3.5-5.1); Sodium 144 mmol/L (136-145)
[2021-11-28 05:49] LABS: Calculated LDL 128 mg/dL (<100); Cholesterol 209 mg/dL (<200); HDL Cholesterol 37 mg/dL (40-60); Triglyceride 222 mg/dL (<150)
[2021-11-28] MEDS: POTASSIUM CHLORIDE 20 MEQ/100 ML BAG 50 MEQ IVPB (06:21)
--- NOTE | 2021-11-28 09:05 | PT.INNT ---
PT Notes Visit Reasons: Hyperglycemia, Toxic Metabolic Encephalopathy PT Inpatient Evaluation on hold per Nursing. Will plan to evaluate tomorrow when patient is stable.
--- NOTE | 2021-11-28 09:46 | PDOC.CMIN ---
- If Service Date Differs Date of service: 11/28/21 Time of Service: 09:47 Care Management Initial Assess REASON FOR HOSPITALIZATION:: Acute hyperglycemia, Altered mental status, Dehydration PAST MEDICAL HISTORY/PAST SURGICAL HISTORY:: All Active Problems (Updated 11/27/21 @ 17:00 by Cinthya Tejada MD). Nausea and vomiting (Acute). Discharge planning issues (Acute). DVT prophylaxis (Acute). Episode of unresponsiveness (Acute). DKA (diabetic ketoacidosis) (Acute). Acute hyperglycemia (Acute). Dehydration (Acute). Medical History (Updated 11/27/21 @ 17:00 by Cinthya Tejada MD). Breast cancer. Hypertension. Pulmonary nodules. Surgical History (Updated 11/27/21 @ 16:49 by Cinthya Tejada MD). S/P cholecystectomy. S/P mastectomy. S/P tonsillectomy. S/P tubal ligation PREVIOUS FUNCTIONAL STATUS/SOCIAL/FAMILY SUPPORTS:: Maddie lives in [facility] with her Saul. 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 Maddie and Saul have 2 adult children who live locally, Rosa Maria Graham and Michael Melissa. Per Saul, Maddie completed Adv. Directives years ago and Miguelina is their HCA. CURRENT FUNCTIONAL STATUS:: Maddie is lying in bed, she is drowsy and confused. Her Saul is in her room sitting on her bedside. He is tearful. He shares that he is being treated for metastatic prostate cancer, which is all through his body. He is feeling quite well and shares that his PSA numbers are going down. He respectfully feels that he is able to soley manage his wifes care needs at home at this time and is reluctant to have services or a referral to [facility]. ADVANCE DIRECTIVES:: Not on file at [facility].Per Saul, HCA is daughter Miguelina Graham. Has patient been provided with info about the portal/API?: Yes Did the patient sign up for the portal?: No CODE STATUS:: Full Code INSURANCE COVERAGE / FINANCIAL ISSUES:: [employer]. Medicare PRIMARY CARE PHYSICIAN:: Raul Lobato. POTENTIAL DISCHARGE NEEDS:: Increased community support/COA Referral. New [facility] RN, PT, OT, COLLEGE OR UNIVERSITY REGISTRAR. Discuss: LT Medicaid offer Applic. Palliative Care Consult PATIENT/FAMILY EDUCATION NEEDS:: Review discharge instructions, limitations, medications and plan to follow up with community providers. Discuss ask me three. TRANSPORTATION:: Via private vehicle with PLAN:: Maddie requires additional medical workup, treatment and close monitoring. Maddie may benefit from an inpatient Palliative consult. Maddie's Saul is her primary caregiver and respectfully defers new [facility] services or increased community support at this time. CM will continue to follow.
[2021-11-28] MEDS: Pantoprazole 40 MG VIAL IVP (12:27)
[2021-11-28] MEDS: Normal Saline Flush 10 ML SYR IVP ×2 (12:27→22:07)
[2021-11-28] MEDS: Enoxaparin 40 MG/0.4 ML SYR SC (12:29)
--- NOTE | 2021-11-28 14:15 | W.PM.PROGNOT ---
Date of Service Date of service: 11/28/21 Time of Service: 14:15 Assessment and Plan Assessment and plan (1) Acute hyperglycemia: Status: Acute Assessment and plan: HHNK Her VBG is more consistent with respiratory acidosis. Her Anion gap has corrected. We will initiate her on basal bolus insulin and monitor her BGs A!c 11.7. (2) Episode of unresponsiveness: Status: Acute Assessment and plan: Telemetry d/c'd d/t patient continuously removing leads out of her confused state. Obtain echo. Monitor for seizures. (3) Nausea and vomiting: Status: Acute Assessment and plan: Suspect this is due to above. No vomiting today. Will also provide a PPI and antiemeitc while hydrating and treating hyperglycemia. (4) Altered mental status: Status: Resolved Assessment and plan: In setting of HHNK, possible unresponsive event. Will obtain an echo Troponins negative. Will trial prn ativan for mental status. Pt does not drink etoh. (5) Dehydration: Status: Acute Assessment and plan: IVF / boluses initially. Attempt oral intake. (6) Hypertension: Assessment and plan: Continue home therapy of amlodipine. (7) DVT prophylaxis: Status: Acute Assessment and plan: lovenox (8) Discharge planning issues: Status: Acute Assessment and plan: Full code Palliative consulted d/t significant dementia and goals of care. present this AM. He has been her home caregiver. He states she has been refusing oral medications. He states she is not combative with him and is directable typically. He stated that he has widely metastatic prostate cancer. It's unlikely he can continue to care for her in the home. Subjective Subjective Patient reports: afebrile; denies diarrhea or vomiting Interval history since last seen: Pt is confused. Refusing to allow BP readings. Exam Narrative Exam Narrative: General: Elderly female lying in bed curled up on left side. Neurological: A&ox1, moving all 4 extremities, doesn't follow commands. Psychiatric: Agitated when awake; mental status precludes a full evaluation Skin: dry/intact; no lesions Cardiovascular: RRR Lungs: Diminished breath sounds B Gastrointestinal: soft, nontender, nondistended Genitourinary: has a warren Extremities: no edema BLEs, doesn't respond as if in pain with calf compression. Objective Last Vital Signs Temp 36.5 C 11/28/21 12:46 Pulse 80 11/28/21 12:46 Resp 16 11/28/21 12:46 BP 153/47 H 11/28/21 05:01 Pulse Ox 92 11/28/21 12:46 Laboratory Results - last 24 hr 11/27/21 11/27/21 11/27/21 15:00 15:00 15:00 WBC RBC Hgb Hct MCV MCH MCHC RDW Plt Count MPV Immature Gran % Neutrophils % Lymphocytes % Monocytes % Eosinophils % Basophils % Nucleated RBC % Absolute Neutrophils Absolute Lymphocytes Absolute Monocytes Absolute Eosinophils Absolute Basophils VBG pH VBG pCO2 VBG pO2 VBG HCO3 VBG Total CO2 VBG O2 Saturation VBG Base Excess VBG Lactate Sodium Potassium Chloride Carbon Dioxide Anion Gap BUN Creatinine Est GFR (CKD-EPI 2020) Glucose Hemoglobin A1c Calcium Phosphorus Magnesium Troponin I Triglycerides Total Cholesterol LDL Cholesterol, Calc HDL Cholesterol Urine Color Yellow Urine Clarity Sl Cloudy Urine pH 6.0 Ur Specific [place] 1.020 Urine Protein 100 H Urine Ketones Trace H Urine Blood Negative Urine Nitrite Negative Urine Bilirubin Negative Urine Urobilinogen 0.2 Ur Leukocyte Esterase Negative Urine RBC 0-2 Urine WBC 10-20 H Ur Epithelial Cells Negative Urine Crystals Negative Urine Bacteria Packed Urine Mucus Negative Ur Culture Indicated? Yes Urine Glucose 500 H Urine Opiates Screen Negative Urine Methadone Screen Negative Ur Barbiturates Screen Negative Ur Tricyclics Screen Negative Ur Amphetamines Screen Negative U Benzodiazepines Scrn Negative Urine Cocaine Screen Negative Ur THC Screen Negative COVID-19 Source Not Applicable SARS-CoV-2 (PCR) Negative Influenza Type A (PCR) Negative Influenza Type B (PCR) Negative RSV (PCR) Negative Add-On Test Request 11/27/21 11/27/21 11/27/21 15:58 15:58 15:58 WBC RBC Hgb Hct MCV MCH MCHC RDW Plt Count MPV Immature Gran % Neutrophils % Lymphocytes % Monocytes % Eosinophils % Basophils % Nucleated RBC % Absolute Neutrophils Absolute Lymphocytes Absolute Monocytes Absolute Eosinophils Absolute Basophils VBG pH 7.32 VBG pCO2 66 H* VBG pO2 27 VBG HCO3 34 H VBG Total CO2 31 H VBG O2 Saturation 47 VBG Base Excess 8 H VBG Lactate Sodium 142 Potassium 3.4 L Chloride 99 Carbon Dioxide 34.5 H Anion Gap 8.5 BUN 14 Creatinine 0.9 Est GFR (CKD-EPI 2020) 63.04 Glucose 376 H Hemoglobin A1c Calcium 9.4 Phosphorus Magnesium Troponin I < 50 Triglycerides Total Cholesterol LDL Cholesterol, Calc HDL Cholesterol Urine Color Urine Clarity Urine pH Ur Specific [place] Urine Protein Urine Ketones Urine Blood Urine Nitrite Urine Bilirubin Urine Urobilinogen Ur Leukocyte Esterase Urine RBC Urine WBC Ur Epithelial Cells Urine Crystals Urine Bacteria Urine Mucus Ur Culture Indicated? Urine Glucose Urine Opiates Screen Urine Methadone Screen Ur Barbiturates Screen Ur Tricyclics Screen Ur Amphetamines Screen U Benzodiazepines Scrn Urine Cocaine Screen Ur THC Screen COVID-19 Source SARS-CoV-2 (PCR) Influenza Type A (PCR) Influenza Type B (PCR) RSV (PCR) Add-On Test Request 11/27/21 11/27/21 11/27/21 15:58 15:58 17:57 WBC RBC Hgb Hct MCV MCH MCHC RDW Plt Count MPV Immature Gran % Neutrophils % Lymphocytes % Monocytes % Eosinophils % Basophils % Nucleated RBC % Absolute Neutrophils Absolute Lymphocytes Absolute Monocytes Absolute Eosinophils Absolute Basophils VBG pH 7.36 VBG pCO2 60 H VBG pO2 27 VBG HCO3 34 H VBG Total CO2 31 H VBG O2 Saturation 51 VBG Base Excess 9 H VBG Lactate Sodium Potassium Chloride Carbon Dioxide Anion Gap BUN Creatinine Est GFR (CKD-EPI 2020) Glucose Hemoglobin A1c Calcium Phosphorus Magnesium 1.6 L Troponin I Triglycerides Total Cholesterol LDL Cholesterol, Calc HDL Cholesterol Urine Color Urine Clarity Urine pH Ur Specific [place] Urine Protein Urine Ketones Urine Blood Urine Nitrite Urine Bilirubin Urine Urobilinogen Ur Leukocyte Esterase Urine RBC Urine WBC Ur Epithelial Cells Urine Crystals Urine Bacteria Urine Mucus Ur Culture Indicated? Urine Glucose Urine Opiates Screen Urine Methadone Screen Ur Barbiturates Screen Ur Tricyclics Screen Ur Amphetamines Screen U Benzodiazepines Scrn Urine Cocaine Screen Ur THC Screen COVID-19 Source SARS-CoV-2 (PCR) Influenza Type A (PCR) Influenza Type B (PCR) RSV (PCR) Add-On Test Request DONE 11/27/21 11/27/21 11/28/21 19:28 20:10 05:03 WBC RBC Hgb Hct MCV MCH MCHC RDW Plt Count MPV Immature Gran % Neutrophils % Lymphocytes % Monocytes % Eosinophils % Basophils % Nucleated RBC % Absolute Neutrophils Absolute Lymphocytes Absolute Monocytes Absolute Eosinophils Absolute Basophils VBG pH VBG pCO2 VBG pO2 VBG HCO3 VBG Total CO2 VBG O2 Saturation VBG Base Excess VBG Lactate Sodium 140 144 Potassium 4.1 3.2 L Chloride 98 101 Carbon Dioxide 34.5 H 34.7 H Anion Gap 7.5 8.3 BUN 15 15 Creatinine 1.0 0.8 Est GFR (CKD-EPI 2020) 55.55 72.61 Glucose 432 H 262 H Hemoglobin A1c Calcium 9.6 9.5 Phosphorus 3.5 Magnesium 2.7 H Troponin I Triglycerides 222 H Total Cholesterol 209 H LDL Cholesterol, Calc 128 H HDL Cholesterol 37 L Urine Color Urine Clarity Urine pH Ur Specific [place] Urine Protein Urine Ketones Urine Blood Urine Nitrite Urine Bilirubin Urine Urobilinogen Ur Leukocyte Esterase Urine RBC Urine WBC Ur Epithelial Cells Urine Crystals Urine Bacteria Urine Mucus Ur Culture Indicated? Urine Glucose Urine Opiates Screen Urine Methadone Screen Ur Barbiturates Screen Ur Tricyclics Screen Ur Amphetamines Screen U Benzodiazepines Scrn Urine Cocaine Screen Ur THC Screen COVID-19 Source Nasal/Nares SARS-CoV-2 (PCR) Negative Influenza Type A (PCR) Influenza Type B (PCR) RSV (PCR) Add-On Test Request 11/28/21 11/28/21 11/28/21 05:03 05:03 05:03 WBC 9.80 RBC 4.28 Hgb 13.4 D Hct 38.4 MCV 90 MCH 31.3 MCHC 34.9 RDW 12.2 Plt Count 178 MPV 11.0 Immature Gran % 0.2 Neutrophils % 64.7 Lymphocytes % 21.5 Monocytes % 12.0 Eosinophils % 0.8 Basophils % 0.8 Nucleated RBC % 0.0 Absolute Neutrophils 6.33 Absolute Lymphocytes 2.11 Absolute Monocytes 1.18 H Absolute Eosinophils 0.08 Absolute Basophils 0.08 VBG pH VBG pCO2 VBG pO2 VBG HCO3 VBG Total CO2 VBG O2 Saturation VBG Base Excess VBG Lactate 1.5 H Sodium Potassium Chloride Carbon Dioxide Anion Gap BUN Creatinine Est GFR (CKD-EPI 2020) Glucose Hemoglobin A1c 11.7 H Calcium Phosphorus Magnesium Troponin I Triglycerides Total Cholesterol LDL Cholesterol, Calc HDL Cholesterol Urine Color Urine Clarity Urine pH Ur Specific [place] Urine Protein Urine Ketones Urine Blood Urine Nitrite Urine Bilirubin Urine Urobilinogen Ur Leukocyte Esterase Urine RBC Urine WBC Ur Epithelial Cells Urine Crystals Urine Bacteria Urine Mucus Ur Culture Indicated? Urine Glucose Urine Opiates Screen Urine Methadone Screen Ur Barbiturates Screen Ur Tricyclics Screen Ur Amphetamines Screen U Benzodiazepines Scrn Urine Cocaine Screen Ur THC Screen COVID-19 Source SARS-CoV-2 (PCR) Influenza Type A (PCR) Influenza Type B (PCR) RSV (PCR) Add-On Test Request
[2021-11-28] MEDS: Insulin Glargine 300 UNITS/3 ML PEN 15 UNITS SC (21:57)
[2021-11-28] MEDS: Normal Saline 500 ML IV (22:07)
[2021-11-28] MEDS: cefTRIAXone 1 GM/50 ML BAG IVPB (22:07)
[2021-11-29] VITALS (8 sets, daily range): BP systolic 127–190; BP diastolic 60–102; PULSE 86–106; RESP 16–20; TEMP 36.3–37.4; O2SAT 91–96
[2021-11-29] MEDS: hydrALAZINE 20 MG/ML VIAL IVP (00:27)
[2021-11-29] MEDS: Normal Saline Flush 10 ML SYR IVP ×3 (00:32→21:51)
--- NOTE | 2021-11-29 08:00 | DI.US_ITS ---
APPROVED REPORT EXAM: Comprehensive 2D, Doppler, and color-flow Echocardiogram Patient Location: In-Patient [employer] System Installer: Sil Watson RDCS (AE) Indications: Syncope Other Information Study Quality: Fair. Technically limited study due to body habitus, inability to position patient. Conclusion Normal left ventricular wall thickness and chamber size. Estimated ejection fraction is 55%. Wall m otion is normal Normal right ventricular size and systolic function Both atria are normal in size Aortic valve is sclerotic and probably trileaflet. There is trace aortic regurgitation. There is no aortic stenosis Mildly thickened mitral leaflets with trace regurgitation Wall motion Left Ventricle The left ventricle is normal size. The left ventricular systolic function is normal. The left ventric ular ejection fraction is within the normal range. There is normal LV segmental wall motion. There is no ventricular septal defect visualized. LVEF is 55%. Right Ventricle The right ventricle is normal size. The right ventricular systolic function is normal. Atria The left atrium size is normal. The right atrium size is normal. The interatrial septum is intact wit h no evidence for an atrial septal defect. Aortic Valve The Aortic valve is sclerotic. Aortic valve is probably trileaflet. There is no aortic valvular steno sis. Trace aortic regurgitation. Mitral Valve Mildly thickened mitral leaflets No evidence of mitral valve stenosis. Trace mitral regurgitation. Tricuspid Valve The tricuspid valve is normal in structure. There is no tricuspid valve stenosis. Trace tricuspid reg urgitation. Unable to assess PA pressure. Pulmonic Valve Pulmonic valve is not well visualized. There is no pulmonic valvular stenosis. There is no pulmonic v alvular regurgitation. Great Vessels The aortic root is normal in size. Ascending aorta is not well visualized. Aortic arch is not well vi sualized. IVC is normal in size and collapses >50% with inspiration. Pericardium There is no pericardial effusion. 2D Dimensions IVSD d PLAX 0.99 cm F: 0.6-1.0 LV Vol A2C d MOD 89.1 mL LVPW d PLAX 1.00 cm F: 0.6 - 1.0 LV Vol A4C d MOD 73.2 mL LVID d PLAX 4.25 cm F: 3.8 - 5.2 LV EF A4C MOD 55.0 % LVDs 2.95 cm F: 2.2 - 3.5 LV EF A2C MOD 55.7 % Ao Root d 3.16 cm F: 2.7 - 3.3 LV EF Biplane MOD 57.5 % RA Area A4C 7.76 cm2 SV 49.11 mL RA Vol/ BSA A4C s A-L 8.8 mL/m2 SV Index 31.70 mL/m2 LV EF Teichholz 57.8 % LVEF (Tong's) 57.51 % F: 54 - 74 LV Volume 70.26 mL F: 46 - 106 LV Volume Index 45.32 mL/m2 F: 29 - 61 LV Vol Biplane MOD 85.4 mL FS 30.15 % M-Mode TAPSE 1.92 cm (M/F) >1.7 LV Diastology MV E' medial 0.043 (>0.07 m/s) E/A Ratio 0.6 LV E/e MED 17.25 (<14) MV E Vmax 0.74 (0.4-1.3 m/s) MV E' lateral 0.058 (>0.1 m/s) MV A Vmax 1.25 (0.4-1.3 m/s) LV E/e LAT 12.85 (<14) MV E/A Ratio 0.58 MV E/E' medial 17.27 MV E/E' lateral 12.88 Aortic Valve LVOT Area 3.13 cm2 AoV Area Vmax 2.01 cm2 LVOT Vmax 1.13 m/s AoV Area/ BSA (Vmax) 1.30 cm2/m2 LVOT Mean Sean. 0.71 m/s SACHI Mean Sean. 1.74 cm2 LVOT Peak Grad 5.1 mmHg SACHI Mean Sean. Index 1.12 cm2/m2 LVOT Mean Grad 2.5 mmHg LVOT VTI 0.181 m LVOT Diam s 1.95 cm AoV Vmax 1.76 m/s Velocity Ratio 0.64 AoV Mean Sean. 1.28 m/s AoV Peak Grad 12.3 mmHg LVOT SV 56.77 mL AoV Mean Grad 7.3 mmHg AoV VTI 0.294 m AoV Area VTI 1.93 cm2 AoV Area/ BSA (VTI) 1.25 cm/m2 Mitral Valve MV DT 236 (160-240 msec) MV PHT 69 msec MV Area PHT 3.21 cm2 Pulmonary Valve PV Vmax 1.33 (0.5-1.5 m/s) RVOT Peak Gr. 5.16 mmHg PV Peak Grad 7.1 mmHg RVOT Mean Gr. 2.75 mmHg PV Mean Grad 3.6 mmHg RVOT VTI 0.158 m PV VTI 0.201 m RVOT Vmax 1.14 m/s
--- NOTE | 2021-11-29 08:56 | CMPROGNOTE_ITS ---
- If Service Date Differs Date of service: 11/29/21 Time of Service: 08:56 Care Management Progress Note S/O: Maddie is sitting up in her chair watching a game show on TV, when CM met with her. She is alert, able to engage in conversation and is smiling. Maddie is planning on discharging home, when she is medically ready. Maddie has advanced dementia. Patients Ken is her primary caregiver and would like to defer [facility] or other community services at this time. A: 86 year old female admitted to [facility] on 11/27/21 for Acute hyperglycemia, Altered mental status, Dehydration P: Maddie requires additional medical workup, treatment and close monitoring. Maddie may benefit from an inpatient Palliative consult. Maddie's Saul is her primary caregiver and respectfully defers new [facility] services or increased community support at this time. CM will continue to follow.
[2021-11-29] MEDS: Pantoprazole 40 MG VIAL IVP (09:03)
[2021-11-29] MEDS: Enoxaparin 40 MG/0.4 ML SYR SC (09:03)
[2021-11-29] MEDS: amLODIPine 10 MG TAB PO (09:04)
[2021-11-29] MEDS: Ondansetron 4 MG/2 ML VIAL IVP (09:04)
[2021-11-29] MEDS: Insulin Aspart 300 UNITS/3 ML PEN SC ×4 (09:05→20:39)
--- NOTE | 2021-11-29 11:11 | IN_ITS ---
Date of service: 11/29/21 Time of Service: 11:11 PT Notes Visit Reasons: Hyperglycemia,Toxic Metabolic Encephalopathy Physical Therapy Inpatient Initial Evaluation Date: 11/29/2021 Referring Doctor: Cinthya Tejada MD PT Orders: PT CONSULT: Limited ability Precautions: Fall. Standard. Activity as tolerated. Patient Profile/Admitting Diagnosis: Patient is an 86-year-old female with diagnoses of acute hyperglycemia, episode of unresponsiveness, nausea and vomitting, altered mental status, dehydration, and hypertension. PMHX: All Active Problems?(Updated 11/27/21 @ 17:00 by Cinthya Tejada MD) Nausea and vomiting (Acute) Discharge planning issues (Acute) DVT prophylaxis (Acute) Episode of unresponsiveness (Acute) DKA (diabetic ketoacidosis) (Acute) Acute hyperglycemia (Acute) Dehydration (Acute) Medical History?(Updated 11/27/21 @ 17:00 by Cinthya Tejada MD) Breast cancer Hypertension Pulmonary nodules Surgical History?(Updated 11/27/21 @ 16:49 by Cinthya Tejada MD) S/P cholecystectomy S/P mastectomy S/P tonsillectomy S/P tubal ligation Social History/Home Situation: Lives with in a trailer with 2 steps to enter without rails. Independent with all spects of ADL prior to admission. Son and daughter live within 10 miles of patient and have been very good support. Equipment Owned/DME: None Subjective: Feels shaky during this first walk with PT. Agreeable to using walker for safety. Reports being mildly lightheaded but no loss of balance. Objective: General Observation: Supine in bed. Hodgson catheter in place. Telemetry monitoring now off. Mental Status: Alert and oriented as to person, place, time, and purpose. Able to pay attention, focus, and respond appropriately. Pain: Denies Vital Signs: WNL as closely monitored by nursing staff ROM: Right Upper Extremity: Shoulder Flexion WFL. Shoulder abduction WFL. Elbow flexion WFL. Wrist flexion WFL. Functional opening and closing of hand WFL. Left Upper Extremity: Shoulder Flexion WFL. Shoulder abduction WFL. Elbow flexion WFL. Wrist flexion WFL. Functional opening and closing of hand WFL. Right Lower Extremity: Hip flexion WFL. Hip abduction WFL. Knee flexion WFL. Ankle dorsiflexion WFL. Ankle plantarflexion WFL. Left Lower Extremity: Hip flexion WFL. Hip abduction WFL. Knee flexion WFL. Ankle dorsiflexion WFL. Ankle plantarflexion WFL. Strength: Right Upper Extremity: Shoulder flexors 4/5. Shoulder abductors 4/5. Elbow flexors 4/5. Elbow extensors 4/5. Video Surveillance Technician strong. Left Upper Extremity: Shoulder flexors 4/5. Shoulder abductors 4/5. Elbow flexors 4/5. Elbow extensors 4/5. Video Surveillance Technician strong. Right Lower Extremity: Hip flexors 4/5. Hip abductors 4/5. Knee flexors 4/5. Knee extensors 4/5. Ankle dorsiflexors 4/5. Ankle plantarflexors 4/5. Left Lower Extremity: Hip flexors 4/5. Hip abductors 4/5. Knee flexors 4/5. Knee extensors 4/5. Ankle dorsiflexors 4/5. Ankle plantarflexors 4/5. Bed Mobility/Transfers: Supine to sit stand by assist Sit to supine stand by assist Sit to stand stand by assist Stand to sit stand by assist Bed to reclining chair contact guard assist Reclining chair to bed contact guard assist Gait: Instructed patient with level surface ambulation of 50 feet x 5 requiring contact guard assist. Bobbi decreased. Step height decreased. Step length decreased. Balance: 42 Static Sitting: Normal Dynamic Sitting: Nprmal Static Standing: Fair Dynamic Standing: Fair Special Tests: Mobility Limitations Standardized Measure [facility] AM-PAC 6 clicks Basic Mobility Inpatient Short Form: Raw Score: 19 CMS Score: []% deficit Informed Consent/Education: Patient was instructed in purpose of PT consult and plan of care. Agreeable to proceed with established PT POC to achieve personal goals. Assessment: Patient presents with clinical signs and symptoms consistent with current/admitting diagnoses that have resulted to mobility limitations, gait instability, generalized weakness, and overall ADL decline as demonstrated by the following impairment level findings: 1. Decreased strength to B UE/LE major muscle groups 2. Impaired sitting/standing balance 3. Impaired activity tolerance Impairments are contributing to the following functional limitations: 1. Decline in bed mobility skills 2. Decline in transfer skills 3. Difficulty with ambulation without assistive device and physical assistance 4. Increased completion time for mobility ADL performance 5. Increased risk for falls 6. Difficulty with managing steps alone safely Patient is assessed as a 29686 moderate complexity based on the following: History: 86-year-old female with past medical history as indicated above Examination: Demonstrable impairment in strength, balance, and mobility level with underlying impairments and functional limitations as exhibited above as well as deficit score of 42% utilizing the [facility] Mobility Inpatient Short Form Presentation: Evolving Decision Makin moderate complexity Goals: Goals X1 week 1. Supine-Sit independent 2. Sit-Supine independent 3. Sit-Stand independent 4. Stand-Sit independent with SPC 5. Bed-Chair independent with SPC 6. Chair-Bed independent with SPC 7. Independent gait on level surface with use of SPC for at least 300 feet without report of pain nor dyspnea 8. Independent stair negotiation while holding onto no rails for at least 3 st eps without report of pain nor dyspnea using SPC 9. Independent with home exercise program 10. Good static and dynamic standing balance/tolerance Plan of Care/Treatment Plan: 1-2x/day, 7 days/week x 1 week. Plan of care has been reviewed with the INTAKE NURSE providing the service under Physical Therapy direction. Initiate Physical Therapy intervention for pain management as needed, strengthening, bed mobility, transfers, gait, stairs, balance training, and use of assistive device. DISCHARGE RECOMMENDATIONS: [] Home with no services [] [X] Home with services . Patient will benefit from home health PT services in order to progress mobility level using least restrictive assistive ambulatory device, assess home safety, identify additional equipment needs, and establish a functional maintenance program that will increase ability of patient to remain at home. [] Home with outpatient PT [] [] SNF for continued rehabilitation [] [] Shelter Care [] [] SNF versus LTC based on ability to participate and progress [] TREATMENT CODE/TIME: 27312 x 20 minutes, 35044 x 18 minutes beginning at 11:11 AM. Thank you for the opportunity to participate in the care of this patient. Ratna Maldonado PT, DPT, CLT [facility] [place], [place]
--- NOTE | 2021-11-29 13:33 | W.PM.PROGNOT ---
Date of Service Date of service: 11/29/21 Time of Service: 13:35 Assessment and Plan Assessment and plan (1) Acute hyperglycemia: Status: Acute Assessment and plan: HHNK Her VBG is more consistent with respiratory acidosis. Her Anion gap has corrected. We will initiate her on basal bolus insulin and monitor her BGs On metformin at home; restart. Initiate Januvia and titrate upward as tolerated. She is not a good candidate for insulin at home should she end up going home with . He states he could not administer it. She was also not taking meds at home but did accept them today. A!c 11.7. (2) Episode of unresponsiveness: Status: Acute Assessment and plan: Telemetry d/c'd d/t patient continuously removing leads out of her confused state. Echo: EF of 55%. Wall motion normal. No significant valvular issues. No seizure activity observed. (3) Nausea and vomiting: Status: Acute Assessment and plan: Suspect this is due to above. No vomiting since admission. Will also provide a PPI and antiemeitc while hydrating and treating hyperglycemia. (4) Altered mental status: Status: Resolved Assessment and plan: In setting of HHNK, possible unresponsive event. Troponins negative.. Pt does not drink etoh. Has known advanced dementia. (5) Dehydration: Status: Acute Assessment and plan: IVF / boluses initially. Oral intake improved today. (6) Hypertension: Assessment and plan: Continue home therapy of amlodipine. (7) DVT prophylaxis: Status: Acute Assessment and plan: lovenox (8) Discharge planning issues: Status: Acute Assessment and plan: Full code Palliative consulted d/t significant dementia and goals of care. It's unlikely can continue to care for her in the home. Also, if she doesn't consistently take her medications she will likely have recurrence of hyperosmolor hyperglycemia and elevated BP. is adamant that he doesn't want her to transition to a nursing facility. Subjective Subjective Patient reports: afebrile; denies diarrhea or vomiting Interval history since last seen: Alert today. Confused. Exam Narrative Exam Narrative: General: Elderly female in bed. Asking if her is coming to see her and asking to go home. Neurological: A&ox1, moving all 4 extremities Psychiatric: Anxious. Confused. Skin: dry/intact; no lesions Cardiovascular: RRR Lungs: Diminished breath sounds B. Nonlabored breathing. Gastrointestinal: soft, nontender, nondistended Genitourinary: has a warren Extremities: no edema BLEs, doesn't respond as if in pain with calf compression. Objective Last Vital Signs Temp 37 C 11/29/21 04:00 Pulse 90 11/29/21 11:02 Resp 20 11/29/21 04:00 BP 157/84 H 11/29/21 11:02 Pulse Ox 94 11/29/21 11:02
--- NOTE | 2021-11-29 14:32 | W.INDIABCONS ---
Date of service: 11/29/21 Time of Service: 14:33 Diabetes Inpatient Consult Reason for Visit: dm DESCRIPTION/ASSESSMENT: Patient not appropriate for diet education at this time. Admitted unresponsive with HHNK on 11/26/21 with A1C of 11.7%, continues to be confused. Home DM meds: 500 mg metformin BID. Hx of medication non compliance. Weight stable and appropriate. Following diabetic diet- completed most of lunch today. Not at nutritional risk at this time. INTERVENTION: Continue diabetic diet PLAN: Will be available for family and supports for diet education as needed. Time Spent in Nutritional Counseling and Treatment: 0
--- NOTE | 2021-11-29 15:16 | PHA.REVIEW2 ---
Pharmacy Admission Review - Admission Clinical Review (Last Updated 11/27/21 @ 16:49 by Cinthya Tejada MD) Nausea and vomiting (Acute) Discharge planning issues (Acute) DVT prophylaxis (Acute) Episode of unresponsiveness (Acute) Acute hyperglycemia (Acute) Dehydration (Acute) enalapril Allergy (Severe, Unverified 11/27/21 17:04) Other (See Comment) morphine Allergy (Mild, Unverified 11/27/21 17:04) Other (See Comment) Resuscitation Status Full Code Height 5 ft Weight 57.9 kg - Renal Dosing Renal Dosing: BUN 15 mg/dL (7-18) 11/28/21 05:03 Creatinine 0.8 mg/dL (0.55-1.02) 11/28/21 05:03 Medications needing adjustments: Reviewed (crcl = 33, continue meds at current dosing, monitor. borderline for dose adjustments) - Anticoagulation Anticoagulation: Hgb 13.4 g/dL (11.2-15.7) D 11/28/21 05:03 Hct 38.4 % (36.0-46.0) 11/28/21 05:03 Plt Count 178 10^3/uL (130-400) 11/28/21 05:03 INR 1.0 (0.9-1.1) 11/27/21 12:35 Creatinine 0.8 mg/dL (0.55-1.02) 11/28/21 05:03 DVT Prophylaxis: Reviewed Medications: Enoxaparin (lovenox 40 mg daily (adjust to 30 mg if crcl <30)) Therapeutic Anticoagulation: N/A - Opiate Usage Evaluate Pain Scale/Pains Meds: N/A - Relevant Labs Sodium 144 mmol/L (136-145) 11/28/21 05:03 Potassium 3.2 mmol/L (3.5-5.1) L 11/28/21 05:03 Chloride 101 mmol/L (98-107) 11/28/21 05:03 Phosphorus 3.5 mg/dL (2.6-4.7) 11/28/21 05:03 Magnesium 2.7 mg/dL (1.8-2.4) H 11/28/21 05:03 Electrolytes, C-Reactive P, ESR: Reviewed (mg = 2.7) - DM Control DM Control: Glucose 262 mg/dL (74-106) H 11/28/21 05:03 Hemoglobin A1c 11.7 % (<5.7) H 11/28/21 05:03 Finger Stick Blood Glucose 328 Finger Stick Blood Glucose 328 Finger Stick Blood Glucose 328 Finger Stick Blood Glucose 292 Finger Stick Blood Glucose 292 Finger Stick Blood Glucose 292 DM Control: Reviewed (on metformin at home, likely noncompliant a1c = 11.7%. Currently on insulin glargine 15 units at HS (increased from 10 units) plus sliding scale 1-9 units 4 times a day - does not use insulin at home. Januvia 25 mg daily added today) - Cardiac Review Cardiac Review: Troponin I < 50 ng/L (<or=60) 11/27/21 15:58 BP, HR, EF%: Reviewed (on amlodipine 10 mg daily) - Qtc Review QTc: Reviewed (QTc = 444 on 11/27) - IV to PO Switch IV Medications: Reviewed - Home Meds Home Med List reviewed: Reviewed Medication adherence barriers identified?: pt/caregiver ability to administer insulin if she is to go home on it, pt likely nonadherent to medication regimen at home given a1c & presentation - home health to manage meds? - Current meds Current Medication Order Review: Reviewed Antibiotic Review - Pharmacy Antibiotic Review Pharmacy Antibiotic Activity: Reviewed, no change (ceftriaxone 1 g daily started last night for UTI, continue)
[2021-11-29 17:21] LABS: Glucose 418 mg/dL (74-106)
[2021-11-29] MEDS: metFORMIN 500 MG TAB PO (19:53)
[2021-11-29] MEDS: Insulin Glargine 300 UNITS/3 ML PEN 15 UNITS SC (20:38)
[2021-11-29] MEDS: cefTRIAXone 1 GM/50 ML BAG IVPB (21:52)
[2021-11-30 03:07] VITALS: BP 158/83; PULSE 83; RESP 18; TEMP 36.6; O2SAT 93
[2021-11-30 06:52] LABS: Anion Gap 10.3 mmol/L (3-11); BUN 21 mg/dL (7-18); CO2 28.7 mmol/L (21.0-32.0); CREATININE 1.1 mg/dL (0.55-1.02); Calcium 9.2 mg/dL (8.5-10.1); Chloride 99 mmol/L (98-107); Estimated GFR 49.55 (mL/min/1.73m2); Glucose 259 mg/dL (74-106); Sodium 138 mmol/L (136-145)
[2021-11-30 06:59] LABS: Potassium 2.7 mmol/L (3.5-5.1)
[2021-11-30 08:06] VITALS: BP 132/84; PULSE 82; RESP 18; TEMP 36.6; O2SAT 94
[2021-11-30] MEDS: POTASSIUM CHLORIDE 20 MEQ/100 ML BAG 50 MEQ IVPB ×2 (08:50→10:35)
[2021-11-30] MEDS: amLODIPine 10 MG TAB PO (09:10)
[2021-11-30] MEDS: Normal Saline Flush 10 ML SYR IVP (09:11)
[2021-11-30] MEDS: Enoxaparin 40 MG/0.4 ML SYR SC (09:11)
[2021-11-30] MEDS: Insulin Aspart 300 UNITS/3 ML PEN SC ×2 (09:11→12:22)
[2021-11-30] MEDS: Pantoprazole 40 MG VIAL IVP (09:11)
[2021-11-30] MEDS: metFORMIN 500 MG TAB PO (09:11)
--- NOTE | 2021-11-30 11:16 | PDOC.CMDIS ---
- If Service Date Differs Date of service: 11/30/21 Time of Service: 11:16 LACE Index Scoring Tool - Questions: Length of Stay (in days): 3 Acuity (Admit via E.D.?): Yes Comorbidities: Any Tumor E.D. Visits: 1 - Answers: Total Score: 9 Risk of Readmission: Low Risk Care Management Discharge Reason for Hospitalization: Acute hyperglycemia, Altered mental status, Dehydration Discharge Plan: Maddie will return home with no additional services per her and her , Saul's wishes. CM faxed referral to [facility] for health coaching to attempt to attend to hesitancy to manage diabetes and accept community based services. Per MD, outpatient PT will be ordered, as well. She will follow up with her PCP and plan of care as prescribed and transport via private vehicle with her . Patient/Family Education Needs: Review discharge instructions, discuss Ask Me Three.
--- NOTE | 2021-11-30 11:29 | W.PM.DS.N ---
Date of service: 11/30/21 Time of Service: 11:32 DS: Diagnosis Discharge Diagnosis (1) Acute hyperglycemia: Status: Acute Asessment and Plan: HHKN. Resolved. Likely d/t nonadherance to medication regimen and diet. Now on metformin and sitagliptin. refuses to consider administering insulin to the patient. She is not capable of managing insulin herself. She refuses home health nursing and allows her to make this decision. (2) Episode of unresponsiveness: Status: Acute Asessment and Plan: Secondary to hyperglycemic state. No recurrence. (3) Altered mental status: Status: Resolved Asessment and Plan: Secondary to HHNK. (4) Hypertension: (5) DVT prophylaxis: Status: Acute Asessment and Plan: Continue amlodipine. Now taking her medications. Will need monitoring to see if she has adequate BP control and is being compliant. (6) Discharge planning issues: Status: Acute Asessment and Plan: Refusing Home Health. PT did recommend PT; referred to outpt PT. Discharge Plan Disposition Patient Disposition: HOME Condition: Improving Discharge Details Reason For Visit: Hyperglycemia,Toxic Metabolic Encephalopathy Admit Date/Time: 11/27/21 16:41 Admit Provider: Cinthya Tejada Attending Provider: Cinthya Tejada Primary Care Provider: Jane Morales [facility] Course Hospital Course: Ms Melissa is an 86 year old female with PMHx of NIDDM2, HTN, breast cancer s/p mastectomy, who was brought to [facility] ED after an unresponsive episode in the shower. EMS felt that the patient may have had a seizure, but there is no evidence of tongue biting, and no clear description of the seizure was provided. The patient had been noncompliant with her medications for a couple of weeks, per nursing who obtained the history from her daughter, and has been confused for the last two days. Her was giving her a shower today when she became unresponsive, but came to it quickly and vomited. also endorsed that the patient had not been taking her medications. Her glucose on arrival to ER was 616. Her VBG was more c/w respiratory acidosis than with metabolic. She did have an anion gap as well on presentation and evidence of ketones, but the AG resolved too quickly for it to have been DKA.? Per ED nursing, the patient had been alternating from sleeping to tremulous/agitated since arrival to the ER No tonic clonic activity observed. The patient, when she woke up, does state that tremors are normal for her. See diagnosis PCP follow up in 1-2 weeks Home Meds and New Rx's Prescriptions: New Januvia 50 mg tablet 50 mg PO DAILY Qty: 30 0RF Continued metformin 500 mg Tablet 500 mg PO BID amlodipine 10 mg Tablet 10 mg PO DAILY Discharge Instructions Stand Alone Forms: Nursing Discharge Form Referrals: Jane Morales MD [Primary Care Provider] - 12/08/21 10:50 am Ifeanyi Morales,Mikel [OTHER] - Activity:: Activity as Tolerated Equipment/Supplies:: No Equipment Needed Diet:: Low carb diabetic diet DS: Summary Time Spent with Patient providing and/or coordinating discharge services: Greater than 30 minutes Status at Discharge Functional status at discharge: independent ambulation Overall status at discharge: patient is progressing back to baseline Mental Status: other (dementia; showing no behavioral issues. ) Speech and Movement: speech and movement normal Mood: congruent mood and other (dementia; showing no behavioral issues. ) Affect: animated Exam Narrative Exam Narrative: General: Elderly female in bed. Asking if her is coming to see her and asking to go home. Neurological: A&ox1, moving all 4 extremities Psychiatric: Animated, pleasant. Oriented to person. Skin: dry/intact; no lesions Cardiovascular: RRR Lungs: Diminished breath sounds B. Nonlabored breathing. Gastrointestinal: soft, nontender, nondistended Extremities: no edema BLEs Psych Mental Status: other (dementia; showing no behavioral issues. ) Speech and Movement: speech and movement normal Mood: congruent mood and other (dementia; showing no behavioral issues. ) Affect: animated DS: Data Vitals/I&O Vitals and I&O: Vital Signs Temperature 36.6 C 11/30/21 08:06 Temperature Source Skin 11/30/21 08:06 Pulse 82 11/30/21 08:06 Pulse Rhythm Regular 11/30/21 09:16 Pulse 84 11/27/21 22:31 Respiratory Rate 18 11/30/21 08:06 Respiratory Effort Non-Labored 11/30/21 09:16 Respiratory Depth Normal 11/30/21 09:16 Respiratory Pattern Normal 11/30/21 09:16 Blood Pressure 132/84 11/30/21 08:06 Blood Pressure Mean 102 11/29/21 11:02 Blood Pressure Position Supine 11/27/21 12:30 Pulse Oximetry 94 11/30/21 08:06 Oxygen Delivery Method Room Air 11/30/21 08:06 Oxygen Flow Rate 0 11/30/21 08:06 Pain Level 0 11/30/21 08:06 Comment 11/29/21 15:30 Intake & Output 11/29/21 11/29/21 11/30/21 11:59 23:59 11:59 Intake Total 240 / 1470 1230 / 1470 800 / 800 Output Total 200 / 325 125 / 325 Balance 40 / 1145 1105 / 1145 800 / 800 Weight 57.9 kg 60.1 kg Intake: IV 100 / 100 150 / 150 Oral 240 / 1370 1130 / 1370 650 / 650 Output: Urine 200 / 325 125 / 325 Other: Urine Color Yellow Yellow Urine Appearance Clear Clear Comment unmeasured Stool Size Large Stool Characteristics Brown Voiding Methods Toilet Data Completed and Pending Labs on day of discharge: Labs from last 24 hours 11/30/21 11/29/21 05:44 16:48 Sodium 138 Potassium 2.7 L* Chloride 99 Carbon Dioxide 28.7 Anion Gap 10.3 BUN 21 H Creatinine 1.1 H Est GFR (CKD-EPI 2020) 49.55 Glucose 259 H 418 H Calcium 9.2 Preliminary micro results at discharge 11/27/21 15:00 Urine Culture - Preliminary Urine - Reflex from Ua Gram Negative Aayush PFSH All Active Problems Nausea and vomiting (Acute) Discharge planning issues (Acute) DVT prophylaxis (Acute) Episode of unresponsiveness (Acute) DKA (diabetic ketoacidosis) (Acute) Acute hyperglycemia (Acute) Dehydration (Acute) Medical History Breast cancer Hypertension Pulmonary nodules Surgical History S/P cholecystectomy S/P mastectomy S/P tonsillectomy S/P tubal ligation Family History Other Family history unobtainable due to patient's condition Social History Smoking/Tobacco Use Status: Former Tobacco Use Smoking risk assessment performed?: Yes Alcohol Intake: never Drug use: Never Additional Social history: unable to ask d/t mental status
[2021-11-30 11:34] VITALS: BP 151/87; PULSE 82; RESP 16; TEMP 36.4; O2SAT 93
--- NOTE | 2021-11-30 15:23 | PT.INTREAT ---
Date of service: 11/30/21 Time of Service: 10:13 PT Notes Visit Reasons: Hyperglycemia,Toxic Metabolic Encephalopathy Inpatient Physical Therapy Treatment Note [facility] Date: 11/30/2021 PRECAUTIONS: Activity as tolerated, Fall, confusion, WBAT L SUBJECTIVE: Maddie is pleasant and agreeable to participating in PT. Her is present and reports that he is prepared to support her in whatever way she needs in order to get her home. OBJECTIVE: PAIN: No c/o pain BED MOBILITY/TRANSFERS Supine-sit: I with HOB flat Sit-supine: I with HOB flat Sit-stand: S Stand-sit: S GAIT: Assistive Device: No AD Weight bearing: Full Assistance: CGA - SBA Distance: 75' Deviation: Occasional LOB with Min A for recovery at times STAIRS: Up/down 3x4 and 2x6 using B rails and a step-to pattern with SBA ASSESSMENT: Patient tolerated session well without complaint. She demonstrates unsteady gait with occasional LOB, however, refuses to use an asisstive device, although was encouraged. PLAN: Patient to discharge to home later today, per provider. Recommend follow up with OP PT for neuro re-education. TREATMENT CODE/TIME: 26 minutes; 51702 x2 (10:13)
== END 2021-11-30 14:27 | disposition home or self-care (01) | DRG 638 ==
LOC: ER 16:55 → ICU 22:50 → MS 11-29 15:55
PROVIDERS: Family Medicine; Admitting Provider Internal Medicine; Emergency Provider Emergency Medicine; Visit Provider Internal Medicine
DX: E11.00 Type 2 diabetes mellitus with hyperosmolarity without nonketotic hyperglycemic-hyperosmolar coma (NKHHC) (principal); E87.29 Other acidosis; I10 Essential (primary) hypertension; R11.2 Nausea with vomiting, unspecified; R55 Syncope and collapse; E86.0 Dehydration; R91.8 Other nonspecific abnormal finding of lung field; Z87.891 Personal history of nicotine dependence; R41.82 Altered mental status, unspecified; F03.90 Unspecified dementia, unspecified severity, without behavioral disturbance, psychotic disturbance, mood disturbance, and anxiety; R25.1 Tremor, unspecified; Z85.3 Personal history of malignant neoplasm of breast; Z91.14 Patient's other noncompliance with medication regimen
CPT/HCPCS: 36415; 36416; 80048; 80053; 80061; 80307; 82550; 82805; 82947; 82962; 83690; 87077; 87635; 87637; 93005; 96361; 96374; 96375; 97162; 97530; 99285; J1650; 70450; 71045; 74177; 81003; 81015; 83036; 83605; 83735; 84100; 84439; 84443; 84484; 85025; 85610; 85730; 87086; 87186; 93010; 93306; 99223; 99232; 99239; J0131; J0360; J0696; J2060; J2405; J3480; J3490

== ENCOUNTER 2022-03-02 16:17 | Outpatient (REF) | payer MEDICARE, OTHER, SELFPAY ==
[2022-03-02 15:30] LABS: Abs Immature Grans 0.02 10^3/uL (0.0-0.06); Absolute Basophil Count 0.08 10^3/uL (0.0-0.2); Absolute Lymphocyte Count 1.02 10^3/uL (1.2-3.4); Absolute Monocyte Count 1.19 10^3/uL (0.1-0.8); Absolute Neutrophil Count 4.74 10^3/uL (1.2-6.7); Basophils % 1.1; HCT 41.7 % (36.0-46.0); HGB 14.3 g/dL (11.2-15.7); Immature Grans % 0.3; Lymphocytes % 14.5; MCH 31.5 pg (27.0-33.0); MCHC 34.3 % (32.0-36.0); MCV 92 fL (80-95); MPV 10.9 fL (8.0-11.0); Monocytes % 16.9; Neutrophils % 67.2; Platelet Count 180 10^3/uL (130-400); RBC 4.54 10^6/uL (3.93-5.22); RDW 12.9 % (11.7-14.6); RDW-SD 42.9 fL; WBC 7.05 10^3/uL (4.4-10.8)
[2022-03-02 15:41] LABS: ALT 40 U/L (14-59); AST 38 U/L (15-37); Alkaline Phosphatase 56 U/L (46-116); Anion Gap 11.4 mmol/L (3-11); BUN 16 mg/dL (7-18); Bilirubin, Total 0.4 mg/dL (0.2-1.0); CO2 26.6 mmol/L (21.0-32.0); Calcium 9.4 mg/dL (8.5-10.1); Chloride 97 mmol/L (98-107); Estimated GFR 55.55 (mL/min/1.73m2); Glucose 139 mg/dL (74-106); Potassium 3.4 mmol/L (3.5-5.1); Sodium 135 mmol/L (136-145); Total Protein 7.9 g/dL (6.4-8.2)
[2022-03-02 16:12] LABS: Bilirubin Negative (Negative); Blood Negative (Negative); Clarity Cloudy (Clear); Glucose Negative (Negative); Ketones Negative (Negative); Leukocyte Esterase Moderate (Negative); Nitrite Negative (Negative); Specific Gravity 1.025 (1.005-1.025); Urobilinogen 0.2 EU/dL (Up TO 0.2); pH 5.5 (5-8)
[2022-03-02 16:24] LABS: Bacteria Moderate HPF (Negative); C & S Indicated? Yes; Casts Negative LPF (Negative); Crystals Few Amorphous HPF (Negative); Epithelial Cells Few HPF (Negative); Mucus Negative (Negative); Other Cells Few Yeast (Negative); RBC 0-2 HPF (0-2)
== END 2022-03-02 16:18 | disposition home or self-care (01) ==
LOC: NCHCN 16:17
PROVIDERS: PCP Family Medicine; Visit Provider Nurse Practitioner Family
DX: R19.7 Diarrhea, unspecified (principal); R10.32 Left lower quadrant pain; R82.998 Other abnormal findings in urine
CPT/HCPCS: 80053; 87077; 81003; 81015; 85025; 87086; 87186

== ENCOUNTER 2023-01-20 21:08 | Outpatient (REF) | payer MEDICARE, OTHER, SELFPAY ==
[2023-01-20 19:48] LABS: HCT 41.4 % (36.0-46.0); MCH 30.4 pg (27.0-33.0); MCHC 33.8 % (32.0-36.0); MCV 90 fL (80-95); MPV 10.4 fL (8.0-11.0); Platelet Count 283 10^3/uL (130-400); RDW 12.3 % (11.7-14.6); RDW-SD 40.7 fL; WBC 9.29 10^3/uL (4.4-10.8)
[2023-01-20 20:05] LABS: ALT 35 U/L (14-59); AST 25 U/L (15-37); Albumin 3.8 g/dL (3.4-5.0); Alkaline Phosphatase 71 U/L (46-116); BUN 15 mg/dL (7-18); Bilirubin, Total 0.3 mg/dL (0.2-1.0); CREATININE 0.9 mg/dL (0.55-1.02); Calcium 9.6 mg/dL (8.5-10.1); Chloride 104 mmol/L (98-107); Estimated GFR 62.65 (mL/min/1.73m2); Glucose 253 mg/dL (74-106); Potassium 4.1 mmol/L (3.5-5.1); Sodium 142 mmol/L (136-145); Total Protein 7.8 g/dL (6.4-8.2)
== END 2023-01-20 21:09 | disposition home or self-care (01) ==
LOC: NCHCN 21:08
PROVIDERS: PCP Family Medicine; Visit Provider Nurse Practitioner Family
DX: I10 Essential (primary) hypertension (principal); E11.9 Type 2 diabetes mellitus without complications
CPT/HCPCS: 80053; 85027

== ENCOUNTER 2024-05-23 12:26 | Emergency (ER) | payer MEDICARE, OTHER, SELFPAY ==
[2024-05-23 12:37] VITALS: BP 210/95; PULSE 88; RESP 20; TEMP 36.5; O2SAT 95
--- NOTE | 2024-05-23 13:00 | RT.EKG_ITS ---
APPROVED REPORT Exam: Resting ECG Reason for Exam: HTN Patient Location: E HR:79 bpm ECG Measurements Heart Rate 79 AXIS TX 183 P 64 QRSd 83 QRS 58 QT 406 T 34 QTc 464 Conclusion Sinus rhythm, rate 79 No interval abnormalities No STEMI No significant changes from priors
--- NOTE | 2024-05-23 13:04 | ED.GENADUL_ITS ---
Discharge Plan Disposition Patient Disposition: Home Condition: Stable Discharge Details Clinical Impression: Hyperglycemia without ketosis, Hypertension, Thrombocytopenia Primary Care Provider: Daniel Antonio ED Provider: Annmarie Zeng Home Meds and New Rx's Prescriptions: No Action losartan 25 mg tablet 12.5 mg PO DAILY metformin 500 mg Tablet 500 mg PO BID amlodipine 10 mg Tablet 10 mg PO DAILY (DME) blood-glucose meter [OneTouch Ultra2 Meter] Kit See Rx Instructions .Route Qty: 1 0RF Rx Instructions: As directed (DME) lancets [OneTouch UltraSoft Lancets] Misc See Rx Instructions .Route Qty: 100 0RF Rx Instructions: As directed (DME) OneTouch Ultra Test Strip See Rx Instructions .Route Qty: 50 0RF Rx Instructions: As directed Discharge Instructions Instructions: Medicines for high blood pressure Additional Instructions: You were seen in the emergency department today for evaluation of high blood pressure and high blood sugar. In our department you do full physical examination performed, you had laboratory studies that showed that your blood sugars in the 300s today, which you report is normal for you. I see no sign of infection, your kidney function is just very slightly above your baseline, and your liver looks healthy. There was no sign of damage to your heart, and I see no sign of infection in your urine. Likely, this is due to not taking your medications as prescribed. I provided you with your dose of medications in the emergency department today, but it is very important that you restart your medications because your blood pressure and blood sugar will not get better and less you do. You also need to follow-up with your primary care provider, as they may be able to help you with services that can come into the home and assist you in managing your health. Reasons to come back to the emergency department include fever chills, shortness of breath or chest pain, headache, numbness or weakness of 1 part of your body, or any of the symptoms that cause you concern. Please follow-up with your primary care provider in the next few days to discuss this visit and any symptoms that change, worsen, or persist. Thank you for allowing us to be part of your care. HPI General Mode of arrival: ambulatory . Date/Time Provider Initiated Documentation: 05/23/24 12:42 . Information obtained by: patient, family and old records reviewed . HPI Narrative: HPI: This is an 88-year-old female patient with a past medical history significa nt for diabetes, hypertension, who is presenting for evaluation of high blood pressure, high blood glucose, and shaking hands. The patient's history is primarily obtained from the and the son, as she has some memory difficulties at baseline. Per she is in her normal mental state of health, but for several weeks has had difficulty getting her blood sugars down below 300. He states that she is on metformin, which she leaves by her dinner plate, but she has not been eating and therefore has not been taking this medication for some time. She is not reliably taking her blood pressure medication either. She has had poor oral hydration, and last night began to have shakiness of her hands. The patient herself reports that she is feeling well, she denies fevers, chest pain, abdominal pain, nausea or vomiting, or changes in bowel or bladder habits. Her son is at bedside as well, states that his parents live alone, and they are concerned that her diabetes and high blood pressure are not very well- controlled. Her last 2 primary care visits have unfortunately had to be rescheduled. Exam: Gen: Awake and alert, in no apparent distress HEENT: Non-icteric sclera, PERRL. Mucous membranes dry Neck: Supple Lungs: No apparent respiratory distress, normal respiratory effort. Lung sounds clear and equal bilaterally CV: Appears well perfused, heart with regular rate and rhythm, strong distal pulses Abdomen: Non-distended, soft, nontender to palpation without rigidity, rebound, or guarding MSK: Moves 4 extremities without apparent limitation in ROM Skin: Visualized skin without rashes, cyanosis. Neuro: Normal Gait with walker, no obvious focal deficits or facial asymmetry. Speaks in full, clear sentences. Alert and oriented to person and place but not time Psych: Appropriate for situation. MDM: This is AN 88-year-old female patient presenting for evaluation of hypertension, high blood sugar and shakiness. My differential includes but is not limited to metabolic derangement including high blood sugar, diabetic ketoacidosis, kidney injury, electrolyte abnormalities. Also considered infectious etiologies including urinary tract infection. The patient is r eassuringly without fever, rigors, or tachycardia to suggest bacteremia or sepsis. She has no abdominal tenderness to suggest intra-abdominal pathology. Considered hypertensive urgency, no chest pain or headache to suggest hypertensive emergency, though certainly endorgan damage could be occurring in this patient with a systolic blood pressure well above 200 mmHg. We will obtain an EKG, laboratory studies to include CBC, CMP, magnesium, troponin, urinalysis, and VBG. I will provide the patient with a liter of IV fluid for rehydration given her dry mucous membranes and poor oral intake. [facility] blood glucose was obtained, found to be 341. ED Course: I reviewed the patient's laboratory studies, which show no leukocytosis or anemia, mild thrombocytopenia to 117. Chemistry panel is without significant electrolyte derangements, BUN and creatinine slightly elevated to 26 and 1.3, though I do not have any recent laboratory studies to compare to. Glucose 309, hemoglobin A1c 8.8, magnesium slightly low at 1.6 and no evidence of liver dysfunction. Troponin negative and without change on 1 hour delta recheck. VBG without acidosis. No evidence of infection on the UA, no ketones, no proteinuria, trace hematuria without an excessive amount of RBCs on microscopy. Glucosuria noted. I provided the patient with her home medications, and I do feel that her high blood pressure blood sugar are due to not taking her medications at home. I do not see any indication of hypertensive emergency or significant endorgan damage, nor diabetic ketoacidosis or infection that would require her to be admitted. I did residential treatment counselor her to follow-up with her primary care provider and discuss options for medication changes as well as potential for home health aides or other resources to allow them to improve her health in the home. At this time, the patient has had a full medical evaluation and is safe for discharge to home. They are hemodynamically stable, ambulatory, and tolerating PO. They are understanding of the follow-up plan and return precautions. They left our facility without incident. Annmarie Zeng MD Related Data Home Medications ?Medication ?Instructions ?Recorded ?Confirmed amlodipine 10 mg tablet 10 mg PO DAILY 11/27/21 05/23/24 metformin 500 mg tablet 500 mg PO BID 11/27/21 05/23/24 blood sugar diagnostic ([employer] USATouch #50 ea 11/30/21 05/23/24 Ultra Test strips) blood-glucose meter ([employer] USATouch #1 ea 11/30/21 05/23/24 Ultra2 Meter kit) lancets ([employer] USATouch UltraSoft #100 ea 10/18/22 04/10/25 Lancets) losartan 25 mg tablet 12.5 mg PO DAILY 08/04/22 05/23/24 Previous Rx's ?Medication ?Instructions ?Recorded blood sugar diagnostic (OneTouch #50 ea 11/30/21 Ultra Test strips) blood-glucose meter (OneTouch #1 ea 11/30/21 Ultra2 Meter kit) lancets (OneTouch UltraSoft #100 ea 11/30/21 Lancets) Allergies Allergy/AdvReac Type Severity Reaction Status Date / Time enalapril Allergy Severe Other (See Verified 05/23/24 12:44 Comment) morphine Allergy Mild Other (See Verified 05/23/24 12:44 Comment) General Stated Complaint: [facility] ALFONZO: 3 Course Vital Signs Vital signs: Vital Signs Temperature 36.5 C 05/23/24 12:37 Pulse 88 05/23/24 12:37 Respiratory Rate 20 05/23/24 12:37 Blood Pressure 210/95 H 05/23/24 12:37 Pulse Oximetry 95 05/23/24 12:37 Temperature 36.5 C 05/23/24 12:37 Temperature Source Oral 05/23/24 12:37 Pulse 88 05/23/24 12:37 Respiratory Rate 20 05/23/24 12:37 Blood Pressure 210/95 H 05/23/24 12:37 Blood Pressure Position Sitting 05/23/24 12:37 Pulse Oximetry 95 05/23/24 12:37 Oxygen Delivery Method Room Air 05/23/24 12:37 Oxygen Flow Rate 0 05/23/24 12:37 Pain Level 0 05/23/24 12:37 Medical Decision Making Quality:SDOH Health Related Social Needs: No Data to Display PFSH All Active Problems (Updated 05/23/24 @ 16:04 by Annmarie Zeng MD) Thrombocytopenia (Chronic) Hypertension (Chronic) Hyperglycemia without ketosis (Acute) DKA (diabetic ketoacidosis) (Acute) Medical History Breast cancer Hypertension Pulmonary nodules Surgical History S/P cholecystectomy S/P mastectomy S/P tonsillectomy S/P tubal ligation Family History Other Family history unobtainable due to patient's condition Social History Smoking/Tobacco Use Status: Former Tobacco Use Smoking risk assessment performed?: Yes Alcohol Intake: never Drug use: Never Additional Social history: unable to ask d/t mental status
[2024-05-23 13:25] LABS: BE (Venous) 2 mmol/L (-2-3); HCO3 (Venous) 27 mmol/L (23-28); O2 Sat (Venous) 79 %; TCO2 (Venous) 24 mmol/L (24-29); pCO2 (Venous) 48 mmHg (41-51); pH (Venous) 7.36 (7.31-7.41); pO2 (Venous) 44 mmHg
[2024-05-23 13:27] LABS: Abs Immature Grans 0.03 10^3/uL (0.0-0.06); Absolute Basophil Count 0.08 10^3/uL (0.0-0.2); Absolute Eosinophil Count 0.22 10^3/uL (0.0-0.7); Absolute Monocyte Count 0.82 10^3/uL (0.1-0.8); Absolute Neutrophil Count 5.03 10^3/uL (1.2-6.7); Eosinophils % 2.8 %; HCT 41.1 % (36.0-46.0); HGB 14.2 g/dL (11.2-15.7); Immature Grans % 0.4 %; Lymphocytes % 20.6 %; MCH 30.8 pg (27.0-33.0); MCHC 34.5 % (32.0-36.0); MCV 89 fL (80-95); MPV 11.2 fL (8.0-11.0); Monocytes % 10.5 %; Neutrophils % 64.7 %; Platelet Count 117 10^3/uL (130-400); RBC 4.61 10^6/uL (3.93-5.22); RDW-SD 38.7 fL; WBC 7.78 10^3/uL (4.4-10.8)
[2024-05-23 13:41] LABS: Hemoglobin A1C 8.8 % (<5.7)
[2024-05-23] MEDS: Lactated Ringers 1,000 ML 1000 ML IV (13:47)
[2024-05-23 14:16] LABS: ALT 26 U/L (14-59); AST 15 U/L (15-37); Albumin 3.8 g/dL (3.4-5.0); Alkaline Phosphatase 91 U/L (46-116); Anion Gap 10.2 mmol/L (3-11); BUN 26 mg/dL (7-18); Bilirubin, Total 0.6 mg/dL (0.2-1.0); CO2 27.8 mmol/L (21.0-32.0); CREATININE 1.3 mg/dL (0.55-1.02); Calcium 9.5 mg/dL (8.5-10.1); Chloride 101 mmol/L (98-107); Estimated GFR 40.05 (mL/min/1.73m2); Glucose 309 mg/dL (74-106); Magnesium 1.6 mg/dL (1.8-2.4); Potassium 3.9 mmol/L (3.5-5.1); Sodium 139 mmol/L (136-145); Total Protein 7.7 g/dL (6.4-8.2); Troponin I 11 ng/L (<or=51)
[2024-05-23 14:47] LABS: Troponin I 11 ng/L (<or=51)
[2024-05-23] MEDS: metFORMIN 500 MG TAB PO (14:52)
[2024-05-23] MEDS: amLODIPine 5 MG TAB 10 MG PO (14:52)
[2024-05-23] MEDS: Losartan 25 MG TAB 12.5 MG PO (14:52)
[2024-05-23 15:31] VITALS: RESP 16
[2024-05-23 15:41] LABS: Bilirubin Negative (Negative); Blood Trace-intact (Negative); Clarity Clear (Clear); Glucose 250 mg/dL (Negative); Ketones Negative (Negative); Leukocyte Esterase Negative (Negative); Nitrite Negative (Negative); Specific Gravity 1.015 (1.005-1.025); Urobilinogen 0.2 mg/dL (Up to 0.2); pH 5.5 (5-8)
[2024-05-23 15:57] LABS: Bacteria Rare HPF (Negative); C & S Indicated? No; Casts Negative LPF (Negative); Crystals Negative HPF (Negative); Epithelial Cells Rare HPF (Negative); Mucus Negative (Negative); RBC 0-2 HPF (0-2); WBC Negative HPF (0-5)
== END 2024-05-23 16:17 | disposition home or self-care (01) ==
PROVIDERS: Emergency Provider Emergency Medicine; PCP Family Medicine
DX: T38.3X6A Underdosing of insulin and oral hypoglycemic [antidiabetic] drugs, initial encounter (principal); E11.65 Type 2 diabetes mellitus with hyperglycemia; I10 Essential (primary) hypertension; D69.6 Thrombocytopenia, unspecified; Z79.84 Long term (current) use of oral hypoglycemic drugs; Z91.148 Patient's other noncompliance with medication regimen for other reason; Z87.891 Personal history of nicotine dependence
CPT/HCPCS: 36415; 80053; 82805; 82962; 93005; 96360; 99284; 81003; 81015; 83036; 83735; 84484; 85025; 93010